=== PATIENT | male | born 1950 | race Caucasian/White ===

== ENCOUNTER 2017-12-15 18:06 | Inpatient (IN) ==
[2017-12-15] MEDS ORDERED: NITROGLYCERIN 2% OINT 1 INCH/GM PACK TOP STA (18:28)
[2017-12-15] MEDS ORDERED: ONDANSETRON 4 MG/2 ML VIAL IV STA (18:28)
[2017-12-15] MEDS ORDERED: ASPIRIN 325 MG TABLET PO STA (18:28)
[2017-12-15 18:49] LABS: Basophils % 0.3 % (0.0-0.8); Eosinophils # 0.1 10*3/uL (0.0-0.87); Hematocrit 23.8 VOL% (42.0-52.0); Hemoglobin 8.6 GM/DL (14.0-18.0); Immature Granulocytes % 1.7 %; Immature Granulocytes Absolute 0.11 #; Lymphocytes % 15.4 % (21.2-54.2); Mean Corpuscular HGB Conc 36.1 GM/DL (32-36); Mean Corpuscular Hemoglobin 38 PG (27-34); Mean Corpuscular Volume 103.9 FL (87-102); Monocytes # 0.6 10*3/uL (0.11-0.8); Monocytes % 8.8 % (1.7-12.7); NRBC # 0.02 10*3/uL; Neutrophils # 4.7 10*3/uL (1.4-7.4); Neutrophils % 71.8 % (38.7-73.9); Platelet Count 163 T/CUMM (130-400); Red Blood Count 2.29 MC/CUMM (3.8-5.5); Red Cell Distribution Width 14.7 % (9.3-17.3); White Blood Count 6.5 T/CUMM (4-12)
[2017-12-15 19:07] LABS: PT Patient Result 10.1 SECS
[2017-12-15 19:33] LABS: Albumin 2.9 G/DL (3.4-5.0); Bilirubin,Total 0.4 MG/DL (0.2-1.0); Calcium 7.7 MG/DL (8.5-10.1); Osmolality,Calculated 297.7 MOS/KG (273-304); Potassium 3.6 MMOL/L (3.5-5.1); Total Protein 6.7 G/DL (6.4-8.3)
[2017-12-15] MEDS ORDERED: MAGNESIUM SULF RIDER 2 GM in PREMIX 1 EACH IV STA (19:47)
[2017-12-15] MEDS ORDERED: ONDANSETRON 4 MG/2 ML VIAL IV PRN (22:55)
[2017-12-15] MEDS ORDERED: SEVELAMER CARBONATE 800 MG TABLET PO SCH (22:55)
[2017-12-15] MEDS ORDERED: GLUCAGON 1 MG VIAL IM PRN (22:55)
[2017-12-15] MEDS ORDERED: ACETAMINOPHEN 325 MG TABLET PO PRN (22:55)
[2017-12-15] MEDS ORDERED: DEXTROSE 50% 25 GM/50 ML VIAL IV PRN (22:55)
[2017-12-15] MEDS: MELATONIN 3 MG TABLET PO SCH (23:17)
[2017-12-15] MEDS: METOPROLOL TARTRATE 25 MG TABLET PO SCH (23:17)
[2017-12-15] MEDS: ATORVASTATIN 40 MG TABLET PO SCH (23:18)
[2017-12-15] MEDS: ERGOCALCIFEROL 50,000 UNIT CAPSULE PO SCH (23:18)
[2017-12-15] MEDS: GABAPENTIN 300 MG CAPSULE PO SCH (23:18)
[2017-12-15] MEDS: SODIUM CHLORIDE 0.9% 1,000 ML IV SCH (23:19)
[2017-12-15] MEDS: INSULIN LISPRO 100 UNIT/ML SUBCUT SCH (23:29)
[2017-12-16] MEDS: INSULIN LISPRO 100 UNIT/ML SUBCUT SCH ×3 (05:33→18:33)
[2017-12-16 05:56] LABS: Calcium 7.8 MG/DL (8.5-10.1); Osmolality,Calculated 300.4 MOS/KG (273-304); Potassium 3.6 MMOL/L (3.5-5.1)
[2017-12-16 06:06] LABS: Risk Ratio 6.52; Thyroid Stimulating Hormone 2.61 uIU/ml (0.358-3.74)
[2017-12-16 06:41] LABS: Basophils % 0.3 % (0.0-0.8); Eosinophils # 0.2 10*3/uL (0.0-0.87); Eosinophils % 2.4 % (0.00-10.9); Hemoglobin 7.1 GM/DL (14.0-18.0); Immature Granulocytes % 2.4 %; Immature Granulocytes Absolute 0.15 #; Lymphocytes # 1.1 10*3/uL (1.4-4.0); Lymphocytes % 17.2 % (21.2-54.2); Mean Corpuscular HGB Conc 33.8 GM/DL (32-36); Mean Corpuscular Hemoglobin 35 PG (27-34); Mean Corpuscular Volume 102.9 FL (87-102); Mean Platelet Volume 10.6 FL (9.6-12.0); Monocytes # 0.7 10*3/uL (0.11-0.8); Monocytes % 10.6 % (1.7-12.7); Neutrophils # 4.2 10*3/uL (1.4-7.4); Neutrophils % 67.1 % (38.7-73.9); Platelet Count 158 T/CUMM (130-400); Red Blood Count 2.04 MC/CUMM (3.8-5.5); Red Cell Distribution Width 14.9 % (9.3-17.3); White Blood Count 6.2 T/CUMM (4-12)
[2017-12-16] MEDS: ENOXAPARIN 30 MG/0.3 ML SYRINGE SUBCUT SCH (09:05)
[2017-12-16] MEDS: PANTOPRAZOLE 40 MG TABLET PO SCH (09:06)
[2017-12-16] MEDS: CITALOPRAM 40 MG TABLET PO SCH (09:06)
[2017-12-16] MEDS: glipiZIDE 10 MG TABLET PO SCH ×2 (09:06→13:51)
[2017-12-16] MEDS: MULTIVITAMIN (BEROCCA) TABLET PO SCH (09:07)
[2017-12-16] MEDS: METOPROLOL TARTRATE 25 MG TABLET PO SCH ×2 (09:07→21:26)
[2017-12-16] MEDS: DOCUSATE SODIUM 100 MG CAPSULE PO PRN (09:07)
[2017-12-16] MEDS: ALLOPURINOL 100 MG TABLET PO SCH (09:07)
[2017-12-16] MEDS: SEVELAMER CARBONATE 800 MG TABLET PO SCH ×3 (11:25→18:31)
[2017-12-16] MEDS ORDERED: SODIUM CHLORIDE 0.9% 1,000 ML IV PRN ×2 (11:47→11:57)
[2017-12-16] MEDS ORDERED: DEXTROSE 5% NACL 0.45% 1,000 ML IV SCH (12:30)
[2017-12-16] MEDS: SODIUM CHLORIDE 0.9% 1,000 ML IV SCH (12:32)
[2017-12-16 13:44] LABS: % Iron Saturation 31.5 % (18-50)
[2017-12-16] MEDS ORDERED: NITROGLYCERIN SL 0.4 MG TABLET SL ONE (15:22)
[2017-12-16] MEDS ORDERED: NITROGLYCERIN SL 0.4 MG TABLET SL PRN (15:29)
[2017-12-16] MEDS: GABAPENTIN 300 MG CAPSULE PO SCH (18:31)
[2017-12-16] MEDS: ATORVASTATIN 40 MG TABLET PO SCH (18:31)
[2017-12-16] MEDS ORDERED: MAGNESIUM SULF RIDER 2 GM in PREMIX 1 EACH IV PRN (18:51)
[2017-12-16] MEDS ORDERED: POTASSIUM CHLORIDE RIDER 10 MEQ in PREMIX 1 EACH IV PRN (18:51)
[2017-12-16] MEDS: MELATONIN 3 MG TABLET PO SCH (21:26)
[2017-12-16 22:40] LABS: Hemoglobin 8.6 GM/DL (14.0-18.0)
[2017-12-17] MEDS: INSULIN LISPRO 100 UNIT/ML SUBCUT SCH ×2 (01:07→06:26)
[2017-12-17] MEDS ORDERED: DIAZEPAM 5 MG TABLET PO ONE (06:30)
[2017-12-17] MEDS ORDERED: diphenhydrAMINE CAP 25 MG CAPSULE PO ONE (06:30)
[2017-12-17] MEDS ORDERED: ASPIRIN 325 MG TABLET PO ONE (06:30)
[2017-12-17 06:58] LABS: Basophils % 0.3 % (0.0-0.8); Eosinophils # 0.1 10*3/uL (0.0-0.87); Eosinophils % 1.9 % (0.00-10.9); Hemoglobin 8.3 GM/DL (14.0-18.0); Immature Granulocytes % 1.7 %; Lymphocytes # 0.9 10*3/uL (1.4-4.0); Lymphocytes % 14.5 % (21.2-54.2); Mean Corpuscular HGB Conc 33.2 GM/DL (32-36); Mean Corpuscular Hemoglobin 32 PG (27-34); Mean Corpuscular Volume 97.7 FL (87-102); Mean Platelet Volume 10.1 FL (9.6-12.0); Monocytes # 0.5 10*3/uL (0.11-0.8); Monocytes % 9.2 % (1.7-12.7); Neutrophils # 4.3 10*3/uL (1.4-7.4); Neutrophils % 72.4 % (38.7-73.9); Platelet Count 119 T/CUMM (130-400); Red Blood Count 2.56 MC/CUMM (3.8-5.5); Red Cell Distribution Width 17.3 % (9.3-17.3); White Blood Count 5.9 T/CUMM (4-12)
[2017-12-17 07:31] LABS: Calcium 8.1 MG/DL (8.5-10.1); Osmolality,Calculated 300.3 MOS/KG (273-304)
[2017-12-17] MEDS: SEVELAMER CARBONATE 800 MG TABLET PO SCH ×3 (09:09→16:01)
[2017-12-17] MEDS ORDERED: NITROGLYCERIN DRIP 50 MG/250 ML BOTTLE IV ONE (09:49)
[2017-12-17] MEDS ORDERED: fentaNYL 100 MCG/2 ML VIAL ONE (09:49)
[2017-12-17] MEDS ORDERED: MIDAZOLAM 2 MG/2 ML VIAL ONE (09:49)
[2017-12-17] MEDS ORDERED: VERAPAMIL 5 MG/2 ML VIAL ONE (09:50)
[2017-12-17] MEDS ORDERED: ENOXAPARIN 60 MG/0.6 ML SYRINGE ONE (10:36)
[2017-12-17] MEDS ORDERED: DEXTROSE 50% 25 GM/50 ML VIAL IV PRN (10:54)
[2017-12-17] MEDS ORDERED: GLUCAGON 1 MG VIAL IM PRN (10:54)
[2017-12-17] MEDS: PANTOPRAZOLE 40 MG TABLET PO SCH (10:54)
[2017-12-17] MEDS: CITALOPRAM 40 MG TABLET PO SCH (10:54)
[2017-12-17] MEDS: ALLOPURINOL 100 MG TABLET PO SCH (10:54)
[2017-12-17] MEDS: METOPROLOL TARTRATE 25 MG TABLET PO SCH ×2 (10:54→20:38)
[2017-12-17] MEDS: ENOXAPARIN 30 MG/0.3 ML SYRINGE SUBCUT SCH (10:54)
[2017-12-17] MEDS: MULTIVITAMIN (BEROCCA) TABLET PO SCH (10:54)
[2017-12-17] MEDS: INSULIN REGULAR 100 UNIT/ML SUBCUT SCH ×3 (11:08→19:38)
[2017-12-17] MEDS: MELATONIN 3 MG TABLET PO SCH (20:38)
[2017-12-17] MEDS: GABAPENTIN 300 MG CAPSULE PO SCH (20:38)
[2017-12-17] MEDS ORDERED: ATORVASTATIN 40 MG TABLET PO SCH (21:00)
[2017-12-18 07:57] LABS: Basophils % 0.3 % (0.0-0.8); Eosinophils # 0.1 10*3/uL (0.0-0.87); Eosinophils % 1.7 % (0.00-10.9); Hematocrit 25.7 VOL% (42.0-52.0); Hemoglobin 8.5 GM/DL (14.0-18.0); Immature Granulocytes % 1.8 %; Immature Granulocytes Absolute 0.12 #; Lymphocytes # 0.9 10*3/uL (1.4-4.0); Lymphocytes % 13.5 % (21.2-54.2); Mean Corpuscular HGB Conc 33.1 GM/DL (32-36); Mean Corpuscular Hemoglobin 33 PG (27-34); Mean Corpuscular Volume 98.8 FL (87-102); Mean Platelet Volume 9.9 FL (9.6-12.0); Monocytes # 0.6 10*3/uL (0.11-0.8); Monocytes % 9.7 % (1.7-12.7); Neutrophils # 4.8 10*3/uL (1.4-7.4); Platelet Count 128 T/CUMM (130-400); White Blood Count 6.6 T/CUMM (4-12)
[2017-12-18] MEDS: CITALOPRAM 40 MG TABLET PO SCH (08:10)
[2017-12-18] MEDS: DOCUSATE SODIUM 100 MG CAPSULE PO PRN (08:10)
[2017-12-18] MEDS: SEVELAMER CARBONATE 800 MG TABLET PO SCH ×3 (08:10→18:09)
[2017-12-18] MEDS: ASPIRIN EC 81 MG TABLET PO SCH (08:11)
[2017-12-18] MEDS: PANTOPRAZOLE 40 MG TABLET PO SCH (08:11)
[2017-12-18] MEDS: METOPROLOL TARTRATE 25 MG TABLET PO SCH ×2 (08:11→21:21)
[2017-12-18] MEDS: INSULIN REGULAR 100 UNIT/ML SUBCUT SCH ×4 (08:11→21:03)
[2017-12-18] MEDS: ALLOPURINOL 100 MG TABLET PO SCH (08:11)
[2017-12-18] MEDS: MULTIVITAMIN (BEROCCA) TABLET PO SCH (08:12)
[2017-12-18] MEDS: ENOXAPARIN 30 MG/0.3 ML SYRINGE SUBCUT SCH (08:12)
[2017-12-18 08:27] LABS: Calcium 8.6 MG/DL (8.5-10.1); Osmolality,Calculated 301.4 MOS/KG (273-304); Potassium 4.4 MMOL/L (3.5-5.1)
[2017-12-18] MEDS: MELATONIN 3 MG TABLET PO SCH (21:21)
[2017-12-18] MEDS: GABAPENTIN 300 MG CAPSULE PO SCH (21:21)
[2017-12-19] MEDS: INSULIN REGULAR 100 UNIT/ML SUBCUT SCH ×4 (08:35→21:01)
[2017-12-19] MEDS: EZETIMIBE 10 MG TABLET PO SCH (08:38)
[2017-12-19] MEDS: METOPROLOL TARTRATE 25 MG TABLET PO SCH ×2 (08:38→20:59)
[2017-12-19] MEDS: FENOFIBRATE 160 MG TABLET PO SCH (08:38)
[2017-12-19] MEDS: MULTIVITAMIN (BEROCCA) TABLET PO SCH (08:38)
[2017-12-19] MEDS: SEVELAMER CARBONATE 800 MG TABLET PO SCH ×3 (08:39→17:35)
[2017-12-19] MEDS: ASPIRIN EC 81 MG TABLET PO SCH (08:39)
[2017-12-19] MEDS: CITALOPRAM 40 MG TABLET PO SCH (08:39)
[2017-12-19] MEDS: PANTOPRAZOLE 40 MG TABLET PO SCH (08:39)
[2017-12-19] MEDS: ENOXAPARIN 30 MG/0.3 ML SYRINGE SUBCUT SCH (08:39)
[2017-12-19] MEDS: ALLOPURINOL 100 MG TABLET PO SCH (08:39)
[2017-12-19] MEDS: ROSUVASTATIN 20 MG TABLET PO SCH (09:50)
[2017-12-19 10:50] LABS: Basophils % 0.3 % (0.0-0.8); Eosinophils # 0.1 10*3/uL (0.0-0.87); Eosinophils % 2.1 % (0.00-10.9); Hematocrit 26.1 VOL% (42.0-52.0); Hemoglobin 8.5 GM/DL (14.0-18.0); Immature Granulocytes % 1.7 %; Immature Granulocytes Absolute 0.11 #; Lymphocytes # 0.7 10*3/uL (1.4-4.0); Lymphocytes % 11.6 % (21.2-54.2); Mean Corpuscular HGB Conc 32.6 GM/DL (32-36); Mean Corpuscular Hemoglobin 33 PG (27-34); Mean Platelet Volume 10.5 FL (9.6-12.0); Monocytes # 0.5 10*3/uL (0.11-0.8); Monocytes % 7.9 % (1.7-12.7); Neutrophils # 4.8 10*3/uL (1.4-7.4); Neutrophils % 76.4 % (38.7-73.9); Platelet Count 135 T/CUMM (130-400); Red Blood Count 2.61 MC/CUMM (3.8-5.5); Red Cell Distribution Width 16.6 % (9.3-17.3); White Blood Count 6.3 T/CUMM (4-12)
[2017-12-19 11:19] LABS: Calcium 8.8 MG/DL (8.5-10.1); Osmolality,Calculated 299.4 MOS/KG (273-304); Potassium 4.4 MMOL/L (3.5-5.1)
[2017-12-19] MEDS ORDERED: MAGNESIUM SULF RIDER 2 GM in PREMIX 1 EACH IV ONE (12:08)
[2017-12-19] MEDS: GABAPENTIN 300 MG CAPSULE PO SCH (20:59)
[2017-12-19] MEDS: MELATONIN 3 MG TABLET PO SCH (20:59)
[2017-12-20 05:17] LABS: Basophils % 0.3 % (0.0-0.8); Eosinophils # 0.2 10*3/uL (0.0-0.87); Eosinophils % 2.5 % (0.00-10.9); Hemoglobin 7.9 GM/DL (14.0-18.0); Immature Granulocytes % 1.6 %; Lymphocytes # 0.8 10*3/uL (1.4-4.0); Lymphocytes % 13.1 % (21.2-54.2); Mean Corpuscular HGB Conc 32.9 GM/DL (32-36); Mean Corpuscular Hemoglobin 33 PG (27-34); Mean Corpuscular Volume 99.6 FL (87-102); Mean Platelet Volume 10.2 FL (9.6-12.0); Monocytes # 0.7 10*3/uL (0.11-0.8); Monocytes % 10.4 % (1.7-12.7); Neutrophils # 4.6 10*3/uL (1.4-7.4); Neutrophils % 72.1 % (38.7-73.9); Platelet Count 134 T/CUMM (130-400); Red Blood Count 2.41 MC/CUMM (3.8-5.5); White Blood Count 6.4 T/CUMM (4-12)
[2017-12-20 05:47] LABS: Calcium 8.7 MG/DL (8.5-10.1); Osmolality,Calculated 297.4 MOS/KG (273-304); Potassium 4.5 MMOL/L (3.5-5.1)
[2017-12-20 06:38] LABS: Hepatitis A Ab IgM Quant 0.25 Index; Hepatitis A Ab IgM Result Negative (Negative); Hepatitis B Core IgM Quant < 0.05 Index; Hepatitis B Core IgM Result Negative (Negative); Hepatitis B Surface Ag Quant 0.24 Index; Hepatitis B Surface Ag Result Negative (Negative); Hepatitis C Virus Ab Quant 0.02 Index; Hepatitis C Virus Ab Result Negative (Negative)
[2017-12-20] MEDS: MULTIVITAMIN (BEROCCA) TABLET PO SCH (08:14)
[2017-12-20] MEDS: glipiZIDE 10 MG TABLET PO SCH ×3 (08:15→17:01)
[2017-12-20] MEDS: ROSUVASTATIN 20 MG TABLET PO SCH (08:15)
[2017-12-20] MEDS: FENOFIBRATE 160 MG TABLET PO SCH (08:15)
[2017-12-20] MEDS: PANTOPRAZOLE 40 MG TABLET PO SCH (08:15)
[2017-12-20] MEDS: CITALOPRAM 40 MG TABLET PO SCH (08:15)
[2017-12-20] MEDS: CLORAZEPATE 3.75 MG TABLET PO PRN ×3 (08:15→21:47)
[2017-12-20] MEDS: EZETIMIBE 10 MG TABLET PO SCH (08:15)
[2017-12-20] MEDS: SEVELAMER CARBONATE 800 MG TABLET PO SCH ×3 (08:15→17:01)
[2017-12-20] MEDS: METOPROLOL TARTRATE 25 MG TABLET PO SCH ×2 (08:15→21:48)
[2017-12-20] MEDS: ASPIRIN EC 81 MG TABLET PO SCH (08:15)
[2017-12-20] MEDS: ALLOPURINOL 100 MG TABLET PO SCH (08:15)
[2017-12-20] MEDS: INSULIN REGULAR 100 UNIT/ML SUBCUT SCH ×4 (08:21→21:48)
[2017-12-20] MEDS: MELATONIN 3 MG TABLET PO SCH (21:47)
[2017-12-20] MEDS: GABAPENTIN 300 MG CAPSULE PO SCH (21:48)
[2017-12-21] MEDS: DOCUSATE SODIUM 100 MG CAPSULE PO PRN (03:45)
[2017-12-21] MEDS: CLORAZEPATE 3.75 MG TABLET PO PRN ×4 (03:45→21:35)
[2017-12-21] MEDS: INSULIN REGULAR 100 UNIT/ML SUBCUT SCH ×4 (09:26→23:27)
[2017-12-21] MEDS: glipiZIDE 10 MG TABLET PO SCH ×3 (09:27→16:55)
[2017-12-21] MEDS: SEVELAMER CARBONATE 800 MG TABLET PO SCH ×3 (09:27→16:55)
[2017-12-21] MEDS: METOPROLOL TARTRATE 25 MG TABLET PO SCH ×2 (09:28→21:35)
[2017-12-21] MEDS: ALLOPURINOL 100 MG TABLET PO SCH (09:28)
[2017-12-21] MEDS: ASPIRIN EC 81 MG TABLET PO SCH (09:28)
[2017-12-21] MEDS: MULTIVITAMIN (BEROCCA) TABLET PO SCH (09:28)
[2017-12-21] MEDS: EZETIMIBE 10 MG TABLET PO SCH (09:28)
[2017-12-21] MEDS: FENOFIBRATE 160 MG TABLET PO SCH (09:28)
[2017-12-21] MEDS: PANTOPRAZOLE 40 MG TABLET PO SCH (09:28)
[2017-12-21] MEDS: CITALOPRAM 40 MG TABLET PO SCH (09:28)
[2017-12-21] MEDS: ROSUVASTATIN 20 MG TABLET PO SCH (09:28)
[2017-12-21] MEDS ORDERED: SODIUM CHLORIDE 0.9% 1,000 ML IV PRN (13:48)
[2017-12-21] MEDS: GABAPENTIN 300 MG CAPSULE PO SCH (21:35)
[2017-12-21] MEDS: MELATONIN 3 MG TABLET PO SCH (21:35)
[2017-12-21] MEDS: SODIUM CHLORIDE 0.9% 1,000 ML IV SCH (23:26)
[2017-12-21] MEDS: CHLORHEXIDINE 0.12% ORAL RINSE 60 ML BOTTLE SWISH/SPIT SCH (23:27)
[2017-12-22 05:48] LABS: Basophils % 0.3 % (0.0-0.8); Eosinophils # 0.2 10*3/uL (0.0-0.87); Eosinophils % 2.6 % (0.00-10.9); Hematocrit 23.3 VOL% (42.0-52.0); Hemoglobin 7.9 GM/DL (14.0-18.0); Immature Granulocytes % 2.7 %; Immature Granulocytes Absolute 0.16 #; Lymphocytes # 1.1 10*3/uL (1.4-4.0); Lymphocytes % 18.1 % (21.2-54.2); Mean Corpuscular HGB Conc 33.9 GM/DL (32-36); Mean Corpuscular Hemoglobin 33 PG (27-34); Mean Corpuscular Volume 96.3 FL (87-102); Mean Platelet Volume 10.2 FL (9.6-12.0); Monocytes # 0.7 10*3/uL (0.11-0.8); Monocytes % 11.9 % (1.7-12.7); Neutrophils # 3.8 10*3/uL (1.4-7.4); Neutrophils % 64.4 % (38.7-73.9); Platelet Count 141 T/CUMM (130-400); Red Blood Count 2.42 MC/CUMM (3.8-5.5); Red Cell Distribution Width 15.9 % (9.3-17.3); White Blood Count 5.9 T/CUMM (4-12)
[2017-12-22 06:10] LABS: Alanine Aminotransferase 24 U/L (16-61); Albumin 2.5 G/DL (3.4-5.0); Alkaline Phosphatase 83 U/L (45-117); Aspartate Amino Transferase 14 U/L (0-37); Bilirubin,Total < 0.39 MG/DL (0.2-1.0); Blood Urea Nitrogen 61 MG/DL (7-18); Calcium 8.7 MG/DL (8.5-10.1); Glucose 159 MG/DL (74-106); Osmolality,Calculated 298.4 MOS/KG (273-304); Potassium 4.1 MMOL/L (3.5-5.1); Sodium 140 MMOL/L (136-145); Total Protein 5.9 G/DL (6.4-8.3)
[2017-12-22] MEDS: INSULIN REGULAR 100 UNIT/ML SUBCUT SCH ×4 (08:33→20:30)
[2017-12-22] MEDS: glipiZIDE 10 MG TABLET PO SCH ×3 (08:49→18:10)
[2017-12-22] MEDS: SEVELAMER CARBONATE 800 MG TABLET PO SCH ×3 (08:49→18:10)
[2017-12-22] MEDS: ROSUVASTATIN 20 MG TABLET PO SCH (10:12)
[2017-12-22] MEDS: MULTIVITAMIN (BEROCCA) TABLET PO SCH (10:12)
[2017-12-22] MEDS: METOPROLOL TARTRATE 25 MG TABLET PO SCH ×2 (10:13→20:29)
[2017-12-22] MEDS: CITALOPRAM 40 MG TABLET PO SCH (10:13)
[2017-12-22] MEDS: ALLOPURINOL 100 MG TABLET PO SCH (10:13)
[2017-12-22] MEDS: FENOFIBRATE 160 MG TABLET PO SCH (10:13)
[2017-12-22] MEDS: ASPIRIN EC 81 MG TABLET PO SCH (10:13)
[2017-12-22] MEDS: ERGOCALCIFEROL 50,000 UNIT CAPSULE PO SCH (10:13)
[2017-12-22] MEDS: EZETIMIBE 10 MG TABLET PO SCH (10:13)
[2017-12-22] MEDS: PANTOPRAZOLE 40 MG TABLET PO SCH (10:13)
[2017-12-22] MEDS: CHLORHEXIDINE 0.12% ORAL RINSE 60 ML BOTTLE SWISH/SPIT SCH ×2 (10:14→20:33)
[2017-12-22] MEDS: CHLORHEXIDINE 4% SOLN 118 ML BOTTLE TOP SCH ×2 (15:00→21:00)
[2017-12-22] MEDS ORDERED: DIAZEPAM 5 MG TABLET PO ONE (15:29)
[2017-12-22] MEDS: CLORAZEPATE 3.75 MG TABLET PO PRN (18:14)
[2017-12-22] MEDS: MELATONIN 3 MG TABLET PO SCH (20:29)
[2017-12-22] MEDS: GABAPENTIN 300 MG CAPSULE PO SCH (20:30)
[2017-12-22 20:45] LABS: Hematocrit 29.4 VOL% (42.0-52.0); Hemoglobin 10.1 GM/DL (14.0-18.0)
[2017-12-23] MEDS ORDERED: PAPAVERINE 60 MG/2 ML VIAL ONE (05:24)
[2017-12-23] MEDS ORDERED: TISSUE ADHESIVE 1 EACH APPLICATOR TOP ONE (05:24)
[2017-12-23] MEDS ORDERED: VANCOMYCIN 1,000 MG VIAL ONE (05:24)
[2017-12-23 05:51] LABS: Basophils % 0.6 % (0.0-0.8); Eosinophils # 0.1 10*3/uL (0.0-0.87); Eosinophils % 2.1 % (0.00-10.9); Hematocrit 29.1 VOL% (42.0-52.0); Hemoglobin 9.8 GM/DL (14.0-18.0); Immature Granulocytes % 2.2 %; Immature Granulocytes Absolute 0.14 #; Lymphocytes # 1.1 10*3/uL (1.4-4.0); Lymphocytes % 17.8 % (21.2-54.2); Mean Corpuscular HGB Conc 33.7 GM/DL (32-36); Mean Corpuscular Hemoglobin 32 PG (27-34); Mean Corpuscular Volume 95.7 FL (87-102); Mean Platelet Volume 9.9 FL (9.6-12.0); Monocytes # 0.6 10*3/uL (0.11-0.8); Monocytes % 9.1 % (1.7-12.7); Neutrophils # 4.2 10*3/uL (1.4-7.4); Neutrophils % 68.2 % (38.7-73.9); Platelet Count 129 T/CUMM (130-400); Red Blood Count 3.04 MC/CUMM (3.8-5.5); Red Cell Distribution Width 16.1 % (9.3-17.3); White Blood Count 6.2 T/CUMM (4-12)
[2017-12-23] MEDS ORDERED: DEXMEDETOMIDINE 200 MCG/2 ML VIAL IV ONE (05:55)
[2017-12-23] MEDS ORDERED: DIAZEPAM 5 MG TABLET PO ONE (06:00)
[2017-12-23] MEDS ORDERED: CEFUROXIME INJ 1,500 MG in SYRINGE 1 EACH IV ONE (06:00)
[2017-12-23 06:19] LABS: Albumin 2.6 G/DL (3.4-5.0); Bilirubin,Total 0.4 MG/DL (0.2-1.0); Calcium 8.4 MG/DL (8.5-10.1); Osmolality,Calculated 297.4 MOS/KG (273-304); Potassium 4.3 MMOL/L (3.5-5.1); Total Protein 6.2 G/DL (6.4-8.3)
[2017-12-23 07:59] LABS: ABG Base Excess -0.8 MMOL/L (-2.5-2.5); ABG HCO3 23.8 MMOL/L (20-26); ABG Oxygen Saturation 98.7 % (95-100); ABG PCO2 38.8 MM HG (35-48); ABG PH 7.397 (7.35-7.45); ABG TCO2 21.9 MMOL/L (23-27); Glucose Heart Surgery 122 MG/DL (74-106); Hemoglobin Heart Surgery 9.4 G/DL (14.0-18.0); Ionized Calcium Arterial 1.15 MMOL/L (1.21-1.46); PCO2 Patient Temp Arterial 38.8 MMHG; PH Patient Temp Arterial 7.397; Patient Temperature 37 CELCIUS; Potassium Heart/CVR 4.4 MMOL/L (3.5-5.1); Sodium Heart/CVR 140 MMOL/L (135-145)
[2017-12-23 09:00] LABS: Apearance,Urine CLEAR (Clear); Bacteria,Urine Occasional /HPF (Few); Bilirubin,Urine Negative (Negative); Blood, Urine Negative (Negative); Glucose,Urine (UA) Negative (Negative); Ketones,Urine Negative (Negative); Nitrite,Urine Negative (Negative); Protein,Urine 100 MG/DL; RBC,Urine 4 /HPF (0-4); Squamous Epithelial Cell,Urine Occasional /HPF (0-10); Urine Color Yellow (Yellow); Urine Specific Gravity 1.013 (1.001-1.035); Urine Urobilinogen < 2.0 EU/DL (0.2-1.0); WBC,Urine 1 /HPF (0-6)
[2017-12-23] MEDS ORDERED: CALCIUM CHLORIDE 1,000 MG/10 ML VIAL IV ONE ×2 (09:22→12:42)
[2017-12-23] MEDS ORDERED: HEPARIN/NACL 0.9% 2 UNITS/ML 500 ML IV ONE (09:22)
[2017-12-23] MEDS ORDERED: ETOMIDATE 40 MG/20 ML VIAL IV ONE (09:23)
[2017-12-23] MEDS ORDERED: PHENYLEPHRINE 10 MG/1 ML VIAL IV ONE (09:23)
[2017-12-23] MEDS ORDERED: VECURONIUM 10 MG VIAL IV ONE (09:23)
[2017-12-23] MEDS ORDERED: SUFentanil 250 MCG/5 ML AMP ONE ×2 (09:23→09:26)
[2017-12-23] MEDS ORDERED: MIDAZOLAM 10 MG/2 ML VIAL ONE (09:23)
[2017-12-23] MEDS ORDERED: LACTATED RINGERS 1,000 ML IV ONE (09:24)
[2017-12-23] MEDS ORDERED: SODIUM CHLORIDE 0.9% 500 ML IV ONE (09:24)
[2017-12-23] MEDS ORDERED: SODIUM CHLORIDE 0.9% 200 ML IV ONE (09:24)
[2017-12-23] MEDS ORDERED: SODIUM CHLORIDE 0.9% 1,000 ML IV ONE (09:24)
[2017-12-23] MEDS ORDERED: NITROGLYCERIN DRIP 50 MG/250 ML BOTTLE IV ONE (09:24)
[2017-12-23 09:34] LABS: Hematocrit Heart Surgery 21.5 PERCENT (42-52); Hemoglobin Heart Surgery 6.9 G/DL (14.0-18.0); PCO2 Patient Temp Venous 39.9 MM HG; PH Patient Temp Venous 7.385; PO2 Patient Temp Venous 33.8 MM HG; Potassium Heart/CVR 5.5 MMOL/L (3.5-5.1); VBG Base Excess -0.8 MEQ/L (0-4); VBG HCO3 23.4 MEQ/L (24-28); VBG Oxygen Saturation 69.2 %; VBG PCO2 43.9 MMHG (41-51); VBG PH 7.357; VBG PO2 38.8 MMHG (17-40)
[2017-12-23 10:06] LABS: Hematocrit Heart Surgery 22.9 PERCENT (42-52); Hemoglobin Heart Surgery 7.3 G/DL (14.0-18.0); PCO2 Patient Temp Venous 36.2 MM HG; PH Patient Temp Venous 7.359; PO2 Patient Temp Venous 37.1 MM HG; Potassium Heart/CVR 5.4 MMOL/L (3.5-5.1); VBG Base Excess -4.4 MEQ/L (0-4); VBG HCO3 20.5 MEQ/L (24-28); VBG Oxygen Saturation 76.7 %; VBG PCO2 41.9 MMHG (41-51); VBG PH 7.317; VBG PO2 45.6 MMHG (17-40)
[2017-12-23 10:38] LABS: Hemoglobin Heart Surgery 7.8 G/DL (14.0-18.0); PCO2 Patient Temp Venous 36.4 MM HG; PH Patient Temp Venous 7.34; VBG Base Excess -6.1 MEQ/L (0-4); VBG HCO3 19.6 MEQ/L (24-28); VBG Oxygen Saturation 72.1 %; VBG PCO2 39.7 MMHG (41-51); VBG PH 7.312
[2017-12-23 10:39] LABS: Potassium Heart/CVR 6.2 MMOL/L (3.5-5.1)
[2017-12-23] MEDS ORDERED: ALBUMIN 5% 12.5 GM/250 ML VIAL IV ONE (10:39)
[2017-12-23] MEDS ORDERED: POTASSIUM CHLORIDE RIDER 100 ML IV ONE (10:39)
[2017-12-23] MEDS ORDERED: THROMBIN TOPICAL (RECOMBINANT) 5,000 UNIT VIAL TOP ONE (10:45)
[2017-12-23] MEDS ORDERED: diphenhydrAMINE 50 MG/1 ML VIAL ONE (10:53)
[2017-12-23] MEDS ORDERED: FAMOTIDINE 20 MG/2 ML VIAL IV ONE (10:54)
[2017-12-23] MEDS: SODIUM CHLORIDE 0.9% 1,000 ML IV SCH (11:00)
[2017-12-23] MEDS: INSULIN REGULAR 100 UNIT/ML SUBCUT SCH ×2 (11:01→16:36)
[2017-12-23] MEDS: glipiZIDE 10 MG TABLET PO SCH ×2 (11:01→16:36)
[2017-12-23] MEDS: ASPIRIN EC 81 MG TABLET PO SCH (11:01)
[2017-12-23] MEDS: SEVELAMER CARBONATE 800 MG TABLET PO SCH ×2 (11:01→16:36)
[2017-12-23] MEDS: ROSUVASTATIN 20 MG TABLET PO SCH (11:02)
[2017-12-23] MEDS: CITALOPRAM 40 MG TABLET PO SCH (11:02)
[2017-12-23] MEDS: CHLORHEXIDINE 4% SOLN 118 ML BOTTLE TOP SCH (11:02)
[2017-12-23] MEDS: CHLORHEXIDINE 0.12% ORAL RINSE 60 ML BOTTLE SWISH/SPIT SCH ×2 (11:02→22:45)
[2017-12-23] MEDS: MULTIVITAMIN (BEROCCA) TABLET PO SCH (11:02)
[2017-12-23] MEDS: METOPROLOL TARTRATE 25 MG TABLET PO SCH (11:02)
[2017-12-23] MEDS: FENOFIBRATE 160 MG TABLET PO SCH (11:03)
[2017-12-23] MEDS: EZETIMIBE 10 MG TABLET PO SCH (11:03)
[2017-12-23] MEDS: PANTOPRAZOLE 40 MG TABLET PO SCH (11:03)
[2017-12-23] MEDS: ALLOPURINOL 100 MG TABLET PO SCH (11:03)
[2017-12-23 11:05] LABS: ABG Base Excess -7.9 MMOL/L (-2.5-2.5); ABG Oxygen Saturation 99.9 % (95-100); ABG PCO2 37.1 MM HG (35-48); ABG PH 7.293 (7.35-7.45); ABG TCO2 17.1 MMOL/L (23-27); Glucose Heart Surgery 193 MG/DL (74-106); Hematocrit Heart Surgery 23.4 PERCENT (42-52); Hemoglobin Heart Surgery 7.5 G/DL (14.0-18.0); Ionized Calcium Arterial 1.11 MMOL/L (1.21-1.46); PCO2 Patient Temp Arterial 37.1 MMHG; PH Patient Temp Arterial 7.293; Patient Temperature 37 CELCIUS; Potassium Heart/CVR 5.7 MMOL/L (3.5-5.1); Sodium Heart/CVR 136 MMOL/L (135-145)
[2017-12-23] MEDS ORDERED: DEXTROSE 5% KCL 20 MEQ 20 MEQ/1,000 ML BAG IV ONE (11:08)
[2017-12-23] MEDS ORDERED: FUROSEMIDE 20 MG/2 ML VIAL ONE (11:09)
[2017-12-23] MEDS ORDERED: MAGNESIUM SULFATE 10 GM/20 ML VIAL IV ONE (11:09)
[2017-12-23] MEDS ORDERED: SODIUM BICARBONATE 50 MEQ/50 ML SYRINGE IV ONE (11:09)
[2017-12-23] MEDS ORDERED: MANNITOL 12.5 GM/50 ML VIAL IV ONE (11:09)
[2017-12-23] MEDS ORDERED: methylPREDNISolone SOD SUC 1,000 MG/8 ML VIAL ONE (11:09)
[2017-12-23] MEDS ORDERED: ALBUMIN 25% 25 GM/100 ML VIAL IV ONE (11:09)
[2017-12-23] MEDS ORDERED: PROTAMINE SULFATE 250 MG/25 ML VIAL IV ONE (11:09)
[2017-12-23] MEDS ORDERED: HEPARIN 10,000 UNIT/10 ML VIAL ONE (11:09)
[2017-12-23] MEDS ORDERED: PHENYLEPHRINE 1 MG/10 ML SYRINGE IV ONE (11:10)
[2017-12-23] MEDS ORDERED: PROTAMINE SULFATE 50 MG/5 ML VIAL IV ONE (11:10)
[2017-12-23 11:27] LABS: ABG HCO3 20.3 MMOL/L (20-26); ABG PCO2 36.4 MM HG (35-48); ABG TCO2 19.2 MMOL/L (23-27); Glucose Heart Surgery 197 MG/DL (74-106); Hematocrit Heart Surgery 20.2 PERCENT (42-52); Hemoglobin Heart Surgery 6.4 G/DL (14.0-18.0); Ionized Calcium Arterial 0.96 MMOL/L (1.21-1.46); PCO2 Patient Temp Arterial 36.4 MMHG; Patient Temperature 37 CELCIUS; Potassium Heart/CVR 5.5 MMOL/L (3.5-5.1); Sodium Heart/CVR 137 MMOL/L (135-145)
[2017-12-23] MEDS ORDERED: PHENYLEPHRINE DRIP 40 MG/250 ML PREMIX IV ONE (11:50)
[2017-12-23] MEDS ORDERED: MAGNESIUM SULF RIDER 2 GM in PREMIX 1 EACH IV PRN (12:41)
[2017-12-23] MEDS ORDERED: ONDANSETRON 4 MG/2 ML VIAL IV PRN (12:41)
[2017-12-23] MEDS ORDERED: MIDAZOLAM 2 MG/2 ML VIAL IV PRN (12:41)
[2017-12-23] MEDS ORDERED: SODIUM CHLORIDE 0.9% 250 ML IV PRN (12:41)
[2017-12-23] MEDS ORDERED: MORPHINE 4 MG/1 ML VIAL IV PRN (12:41)
[2017-12-23] MEDS ORDERED: MORPHINE 10 MG/1 ML VIAL IV PRN (12:41)
[2017-12-23] MEDS ORDERED: CHLORHEXIDINE 4% SOLN 118 ML BOTTLE TOP PRN (12:41)
[2017-12-23] MEDS ORDERED: MAGNESIUM SULF RIDER 4 GM in PREMIX 1 EACH IV PRN (12:41)
[2017-12-23] MEDS ORDERED: POTASSIUM CHLORIDE RIDER 20 MEQ in PREMIX 1 EACH IV PRN (12:41)
[2017-12-23] MEDS ORDERED: ACETAMINOPHEN 650 MG SUPP RECTAL PRN (12:41)
[2017-12-23] MEDS ORDERED: DEXTROSE 50% 25 GM/50 ML VIAL IV PRN ×2 (12:41)
[2017-12-23] MEDS ORDERED: POTASSIUM CHLORIDE RIDER 10 MEQ in PREMIX 1 EACH IV PRN (12:41)
[2017-12-23] MEDS ORDERED: CALCIUM CHLORIDE 1,000 MG/10 ML SYRINGE IV PRN (12:41)
[2017-12-23] MEDS ORDERED: INSULIN REGULAR 100 UNIT/ML IV PRN (12:41)
[2017-12-23] MEDS ORDERED: SEVOFLURANE 1 UNIT/15 MINUTE INH ONE (12:42)
[2017-12-23] MEDS ORDERED: ePHEDrine 50 MG/ML AMP ONE (12:53)
[2017-12-23 12:57] LABS: ABG Base Excess -4.3 MMOL/L (-2.5-2.5); ABG HCO3 20.9 MMOL/L (20-26); ABG PCO2 35.5 MM HG (35-48); ABG PH 7.368 (7.35-7.45); ABG TCO2 18.8 MMOL/L (23-27); Glucose Heart Surgery 188 MG/DL (74-106); Hematocrit Heart Surgery 29.2 PERCENT (42-52); Hemoglobin Heart Surgery 9.4 G/DL (14.0-18.0); Potassium Heart/CVR 5.5 MMOL/L (3.5-5.1)
[2017-12-23 12:59] LABS: Basophils % 0.2 % (0.0-0.8); Eosinophils % 0.3 % (0.00-10.9); Hematocrit 23.9 VOL% (42.0-52.0); Immature Granulocytes Absolute 0.18 #; Lymphocytes # 0.6 10*3/uL (1.4-4.0); Lymphocytes % 6.2 % (21.2-54.2); Mean Corpuscular HGB Conc 33.5 GM/DL (32-36); Mean Corpuscular Hemoglobin 31 PG (27-34); Mean Corpuscular Volume 93.7 FL (87-102); Mean Platelet Volume 10.4 FL (9.6-12.0); Monocytes # 0.4 10*3/uL (0.11-0.8); Monocytes % 4.3 % (1.7-12.7); Neutrophils # 7.7 10*3/uL (1.4-7.4); Platelet Count 135 T/CUMM (130-400); Red Blood Count 2.55 MC/CUMM (3.8-5.5); White Blood Count 8.9 T/CUMM (4-12)
[2017-12-23] MEDS ORDERED: SODIUM CHLORIDE 0.45% 1,000 ML IV SCH ×2 (13:00)
[2017-12-23] MEDS ORDERED: INSULIN REGULAR DRIP 100 ML IV SCH (13:00)
[2017-12-23 13:14] LABS: Blood Urea Nitrogen 51 MG/DL (7-18); Calcium 8.3 MG/DL (8.5-10.1); Glucose 192 MG/DL (74-106); Osmolality,Calculated 299.3 MOS/KG (273-304); Potassium 5.7 MMOL/L (3.5-5.1); Sodium 141 MMOL/L (136-145)
[2017-12-23 13:19] LABS: INR 1.1; PT Patient Result 11.8 SECS; Partial Thromboplastin Time 26.8 SECS (0-40)
[2017-12-23] MEDS: ALBUMIN 5% 12.5 GM in PREMIX 1 EACH IV PRN ×2 (13:45→14:01)
[2017-12-23 13:49] LABS: Lactic Acid 3.7 MMOL/L (0.4-2.0)
[2017-12-23] MEDS ORDERED: PHENYLEPHRINE DRIP 40 MG/250 ML PREMIX IV PRN (15:25)
[2017-12-23] MEDS ORDERED: CALCIUM GLUCONATE 1,000 MG in SODIUM CHLORIDE 0.9% 100 ML IV ONE (16:00)
[2017-12-23] MEDS ORDERED: ASPIRIN 325 MG TABLET PO ONE (19:56)
[2017-12-23 20:44] LABS: ABG HCO3 19.5 MMOL/L (20-26); ABG Oxygen Saturation 98.8 % (95-100); ABG PCO2 34.2 MM HG (35-48); ABG TCO2 17.5 MMOL/L (23-27); Glucose Heart Surgery 123 MG/DL (74-106); Hematocrit Heart Surgery 28.4 PERCENT (42-52); Hemoglobin Heart Surgery 9.2 G/DL (14.0-18.0); Potassium Heart/CVR 5.2 MMOL/L (3.5-5.1)
[2017-12-23] MEDS: CEFUROXIME INJ 1,500 MG in SYRINGE 1 EACH IV SCH (22:46)
[2017-12-24 04:22] LABS: Basophils % 0.1 % (0.0-0.8); Hematocrit 19.9 VOL% (42.0-52.0); Hemoglobin 6.5 GM/DL (14.0-18.0); Immature Granulocytes % 1.5 %; Lymphocytes # 0.5 10*3/uL (1.4-4.0); Lymphocytes % 3.5 % (21.2-54.2); Mean Corpuscular HGB Conc 32.7 GM/DL (32-36); Mean Corpuscular Hemoglobin 32 PG (27-34); Mean Corpuscular Volume 97.1 FL (87-102); Mean Platelet Volume 10.5 FL (9.6-12.0); Monocytes # 0.9 10*3/uL (0.11-0.8); Monocytes % 6.8 % (1.7-12.7); Neutrophils # 11.9 10*3/uL (1.4-7.4); Neutrophils % 88.1 % (38.7-73.9); Platelet Count 145 T/CUMM (130-400); Red Blood Count 2.05 MC/CUMM (3.8-5.5); Red Cell Distribution Width 17.3 % (9.3-17.3); White Blood Count 13.5 T/CUMM (4-12)
[2017-12-24 04:48] LABS: Band Neutrophils 6 % (0-10); Hypochromasia 1+; Lymphocytes 5 % (20-55); Platelet Estimate Adequate; Segmented Neutrophils 86 % (50-85); Total Cells Counted 100
[2017-12-24 04:49] LABS: Ovalocytes Slight
[2017-12-24 04:55] LABS: Calcium 6.5 MG/DL (8.5-10.1); Potassium 5.5 MMOL/L (3.5-5.1)
[2017-12-24] MEDS ORDERED: SODIUM CHLORIDE 0.9% 1,000 ML IV PRN (08:09)
[2017-12-24] MEDS: PANTOPRAZOLE 40 MG VIAL IV SCH (08:20)
[2017-12-24] MEDS: MULTIVITAMIN (BEROCCA) TABLET PO SCH (08:24)
[2017-12-24] MEDS: CHLORHEXIDINE 0.12% ORAL RINSE 60 ML BOTTLE SWISH/SPIT SCH ×2 (08:24→21:33)
[2017-12-24] MEDS: FUROSEMIDE 40 MG TABLET PO SCH (08:24)
[2017-12-24] MEDS: ASPIRIN EC 325 MG TABLET PO SCH (08:24)
[2017-12-24] MEDS: CEFUROXIME INJ 1,500 MG in SYRINGE 1 EACH IV SCH ×2 (08:25→21:34)
[2017-12-24] MEDS: INSULIN REGULAR 100 UNIT/ML SUBCUT SCH ×3 (12:16→21:34)
[2017-12-24] MEDS: HYDROmorphone 2 MG/1 ML VIAL IV PRN ×2 (14:16→20:54)
[2017-12-24 16:55] LABS: Hematocrit 26.1 VOL% (42.0-52.0)
[2017-12-24 17:12] LABS: Hemoglobin 8.8 GM/DL (14.0-18.0)
[2017-12-24] MEDS: ATORVASTATIN 40 MG TABLET PO SCH (21:34)
[2017-12-25] MEDS: INSULIN REGULAR 100 UNIT/ML SUBCUT SCH ×6 (01:47→22:18)
[2017-12-25 04:47] LABS: Basophils % 0.1 % (0.0-0.8); Hematocrit 26.4 VOL% (42.0-52.0); Hemoglobin 8.7 GM/DL (14.0-18.0); Immature Granulocytes % 1.7 %; Immature Granulocytes Absolute 0.17 #; Lymphocytes # 0.6 10*3/uL (1.4-4.0); Lymphocytes % 5.4 % (21.2-54.2); Mean Corpuscular Hemoglobin 31 PG (27-34); Mean Corpuscular Volume 95.3 FL (87-102); Mean Platelet Volume 10.3 FL (9.6-12.0); Monocytes % 9.6 % (1.7-12.7); NRBC # 0.03 10*3/uL; Neutrophils # 8.4 10*3/uL (1.4-7.4); Neutrophils % 83.2 % (38.7-73.9); Platelet Count 110 T/CUMM (130-400); Red Blood Count 2.77 MC/CUMM (3.8-5.5); Red Cell Distribution Width 16.3 % (9.3-17.3); White Blood Count 10.1 T/CUMM (4-12)
[2017-12-25 05:22] LABS: Osmolality,Calculated 294.7 MOS/KG (273-304); Potassium 4.9 MMOL/L (3.5-5.1)
[2017-12-25] MEDS: HYDROmorphone 2 MG/1 ML VIAL IV PRN ×4 (05:42→22:19)
[2017-12-25] MEDS: MULTIVITAMIN (BEROCCA) TABLET PO SCH (08:40)
[2017-12-25] MEDS: FUROSEMIDE 40 MG TABLET PO SCH (08:41)
[2017-12-25] MEDS: PANTOPRAZOLE 40 MG VIAL IV SCH (08:41)
[2017-12-25] MEDS: ASPIRIN EC 325 MG TABLET PO SCH (08:41)
[2017-12-25] MEDS: CHLORHEXIDINE 0.12% ORAL RINSE 60 ML BOTTLE SWISH/SPIT SCH ×2 (08:45→22:18)
[2017-12-25] MEDS: ATORVASTATIN 40 MG TABLET PO SCH (22:18)
[2017-12-26] MEDS: INSULIN REGULAR 100 UNIT/ML SUBCUT SCH ×6 (01:53→21:26)
[2017-12-26 04:42] LABS: Basophils % 0.2 % (0.0-0.8); Eosinophils % 0.3 % (0.00-10.9); Hematocrit 25.4 VOL% (42.0-52.0); Hemoglobin 8.5 GM/DL (14.0-18.0); Immature Granulocytes % 3.4 %; Lymphocytes # 0.7 10*3/uL (1.4-4.0); Lymphocytes % 8.3 % (21.2-54.2); Mean Corpuscular HGB Conc 33.5 GM/DL (32-36); Mean Corpuscular Hemoglobin 32 PG (27-34); Mean Corpuscular Volume 94.1 FL (87-102); Mean Platelet Volume 10.3 FL (9.6-12.0); Monocytes % 10.9 % (1.7-12.7); NRBC # 0.02 10*3/uL; Neutrophils # 6.9 10*3/uL (1.4-7.4); Neutrophils % 76.9 % (38.7-73.9); Platelet Count 119 T/CUMM (130-400); Red Cell Distribution Width 15.9 % (9.3-17.3)
[2017-12-26 05:13] LABS: Calcium 7.7 MG/DL (8.5-10.1); Osmolality,Calculated 300.7 MOS/KG (273-304); Potassium 4.5 MMOL/L (3.5-5.1)
[2017-12-26] MEDS: PANTOPRAZOLE 40 MG VIAL IV SCH (08:41)
[2017-12-26] MEDS: FUROSEMIDE 40 MG TABLET PO SCH (08:42)
[2017-12-26] MEDS: MULTIVITAMIN (BEROCCA) TABLET PO SCH (08:43)
[2017-12-26] MEDS: CHLORHEXIDINE 0.12% ORAL RINSE 60 ML BOTTLE SWISH/SPIT SCH ×2 (08:43→21:27)
[2017-12-26] MEDS: ASPIRIN EC 325 MG TABLET PO SCH (08:43)
[2017-12-26] MEDS: HYDROmorphone 2 MG/1 ML VIAL IV PRN ×3 (10:27→21:26)
[2017-12-26] MEDS: glipiZIDE 10 MG TABLET PO SCH (15:43)
[2017-12-26] MEDS: ATORVASTATIN 40 MG TABLET PO SCH (21:26)
[2017-12-26] MEDS ORDERED: POLYETHYLENE GLYCOL POWDER 17 GM PACK PO PRN (21:44)
[2017-12-26] MEDS: DOCUSATE SODIUM 100 MG CAPSULE PO SCH (23:06)
[2017-12-27] MEDS: INSULIN REGULAR 100 UNIT/ML SUBCUT SCH ×6 (00:55→22:04)
[2017-12-27] MEDS: HYDROmorphone 2 MG/1 ML VIAL IV PRN ×4 (02:05→21:23)
[2017-12-27 05:34] LABS: Hemoglobin 8.2 GM/DL (14.0-18.0); Red Blood Count 2.61 MC/CUMM (3.8-5.5); White Blood Count 6.8 T/CUMM (4-12)
[2017-12-27 05:35] LABS: Basophils % 0.3 % (0.0-0.8); Eosinophils # 0.1 10*3/uL (0.0-0.87); Eosinophils % 1.9 % (0.00-10.9); Immature Granulocytes % 4.4 %; Lymphocytes # 0.8 10*3/uL (1.4-4.0); Lymphocytes % 12.2 % (21.2-54.2); Mean Corpuscular HGB Conc 32.8 GM/DL (32-36); Mean Corpuscular Hemoglobin 31 PG (27-34); Mean Corpuscular Volume 95.8 FL (87-102); Mean Platelet Volume 10.5 FL (9.6-12.0); Monocytes # 0.8 10*3/uL (0.11-0.8); Monocytes % 11.3 % (1.7-12.7); NRBC # 0.02 10*3/uL; Neutrophils # 4.8 10*3/uL (1.4-7.4); Neutrophils % 69.9 % (38.7-73.9); Platelet Count 116 T/CUMM (130-400); Red Cell Distribution Width 15.6 % (9.3-17.3)
[2017-12-27 06:02] LABS: Osmolality,Calculated 304.4 MOS/KG (273-304); Potassium 3.9 MMOL/L (3.5-5.1)
[2017-12-27] MEDS: PANTOPRAZOLE 40 MG VIAL IV SCH (09:39)
[2017-12-27] MEDS: ASPIRIN EC 325 MG TABLET PO SCH (09:39)
[2017-12-27] MEDS: CHLORHEXIDINE 0.12% ORAL RINSE 60 ML BOTTLE SWISH/SPIT SCH ×2 (09:39→21:23)
[2017-12-27] MEDS: MULTIVITAMIN (BEROCCA) TABLET PO SCH (09:39)
[2017-12-27] MEDS: glipiZIDE 10 MG TABLET PO SCH ×2 (09:39→16:07)
[2017-12-27] MEDS: DOCUSATE SODIUM 100 MG CAPSULE PO SCH ×2 (09:40→21:23)
[2017-12-27] MEDS: FUROSEMIDE 40 MG TABLET PO SCH (09:40)
[2017-12-27 09:42] LABS: Basophils % 0.3 % (0.0-0.8); Eosinophils # 0.2 10*3/uL (0.0-0.87); Eosinophils % 2.3 % (0.00-10.9); Hematocrit 28.2 VOL% (42.0-52.0); Hemoglobin 9.2 GM/DL (14.0-18.0); Immature Granulocytes % 4.4 %; Immature Granulocytes Absolute 0.33 #; Lymphocytes # 0.8 10*3/uL (1.4-4.0); Lymphocytes % 10.5 % (21.2-54.2); Mean Corpuscular HGB Conc 32.6 GM/DL (32-36); Mean Corpuscular Hemoglobin 31 PG (27-34); Mean Corpuscular Volume 95.6 FL (87-102); Mean Platelet Volume 10.1 FL (9.6-12.0); Monocytes # 0.8 10*3/uL (0.11-0.8); Monocytes % 11.1 % (1.7-12.7); NRBC # 0.02 10*3/uL; Neutrophils # 5.4 10*3/uL (1.4-7.4); Neutrophils % 71.4 % (38.7-73.9); Platelet Count 142 T/CUMM (130-400); Red Blood Count 2.95 MC/CUMM (3.8-5.5); Red Cell Distribution Width 15.5 % (9.3-17.3); White Blood Count 7.6 T/CUMM (4-12)
[2017-12-27 10:29] LABS: Calcium 8.3 MG/DL (8.5-10.1); Osmolality,Calculated 304.4 MOS/KG (273-304); Potassium 3.9 MMOL/L (3.5-5.1)
[2017-12-27] MEDS: ATORVASTATIN 40 MG TABLET PO SCH (21:23)
[2017-12-28] MEDS: HYDROmorphone 2 MG/1 ML VIAL IV PRN (00:58)
[2017-12-28 04:24] LABS: Basophils % 0.4 % (0.0-0.8); Eosinophils # 0.1 10*3/uL (0.0-0.87); Eosinophils % 1.9 % (0.00-10.9); Hematocrit 26.2 VOL% (42.0-52.0); Hemoglobin 8.6 GM/DL (14.0-18.0); Immature Granulocytes % 4.7 %; Immature Granulocytes Absolute 0.33 #; Lymphocytes # 0.7 10*3/uL (1.4-4.0); Lymphocytes % 10.1 % (21.2-54.2); Mean Corpuscular HGB Conc 32.8 GM/DL (32-36); Mean Corpuscular Hemoglobin 31 PG (27-34); Mean Corpuscular Volume 95.3 FL (87-102); Mean Platelet Volume 10.3 FL (9.6-12.0); Monocytes # 0.8 10*3/uL (0.11-0.8); Monocytes % 11.6 % (1.7-12.7); Neutrophils % 71.3 % (38.7-73.9); Platelet Count 141 T/CUMM (130-400); Red Blood Count 2.75 MC/CUMM (3.8-5.5); Red Cell Distribution Width 15.3 % (9.3-17.3)
[2017-12-28 04:57] LABS: Calcium 8.2 MG/DL (8.5-10.1); Osmolality,Calculated 307.3 MOS/KG (273-304); Potassium 3.7 MMOL/L (3.5-5.1)
[2017-12-28] MEDS: CLORAZEPATE 3.75 MG TABLET PO PRN ×2 (05:50→12:32)
[2017-12-28 07:29] LABS: Apearance,Urine Clear (Clear); Bilirubin,Urine Negative (Negative); Glucose,Urine (UA) Negative (Negative); Ketones,Urine Negative (Negative); Nitrite,Urine Negative (Negative); Protein,Urine 100 MG/DL; Urine Color Yellow (Yellow)
[2017-12-28 07:30] LABS: Blood, Urine Small mg/dL (Negative); RBC,Urine 1 /HPF (0-4); Urine Urobilinogen < 2.0 EU/DL (0.2-1.0); WBC,Urine 1 /HPF (0-6)
[2017-12-28 07:31] LABS: Bacteria,Urine Occasional /HPF (Few); Mucus,Urine Occasional /LPF (Occasional)
[2017-12-28] MEDS: CITALOPRAM 40 MG TABLET PO SCH (08:52)
[2017-12-28] MEDS: PANTOPRAZOLE 40 MG VIAL IV SCH (08:52)
[2017-12-28] MEDS: MULTIVITAMIN (BEROCCA) TABLET PO SCH (08:53)
[2017-12-28] MEDS: FUROSEMIDE 40 MG TABLET PO SCH (08:53)
[2017-12-28] MEDS: CARVEDILOL 3.125 MG TABLET PO SCH ×2 (08:53→21:29)
[2017-12-28] MEDS: DOCUSATE SODIUM 100 MG CAPSULE PO SCH ×2 (08:53→21:29)
[2017-12-28] MEDS: ASPIRIN EC 325 MG TABLET PO SCH (08:53)
[2017-12-28] MEDS: CHLORHEXIDINE 0.12% ORAL RINSE 60 ML BOTTLE SWISH/SPIT SCH ×2 (08:53→21:30)
[2017-12-28] MEDS: glipiZIDE 10 MG TABLET PO SCH ×2 (08:53→17:13)
[2017-12-28] MEDS: INSULIN REGULAR 100 UNIT/ML SUBCUT SCH ×4 (08:54→21:24)
[2017-12-28] MEDS ORDERED: traMADol 50 MG TABLET PO PRN (09:09)
[2017-12-28] MEDS: LOSARTAN 25 MG TABLET PO SCH ×2 (09:31→21:29)
[2017-12-28] MEDS ORDERED: chlordiazePOXIDE 10 MG CAPSULE PO SCH (21:00)
[2017-12-28] MEDS ORDERED: MELATONIN 3 MG TABLET PO SCH (21:00)
[2017-12-28] MEDS: ATORVASTATIN 40 MG TABLET PO SCH (21:29)
[2017-12-29 04:56] LABS: Basophils % 0.4 % (0.0-0.8); Eosinophils # 0.1 10*3/uL (0.0-0.87); Eosinophils % 1.8 % (0.00-10.9); Hematocrit 27.2 VOL% (42.0-52.0); Hemoglobin 8.9 GM/DL (14.0-18.0); Immature Granulocytes % 4.7 %; Immature Granulocytes Absolute 0.36 #; Lymphocytes # 0.8 10*3/uL (1.4-4.0); Lymphocytes % 10.8 % (21.2-54.2); Mean Corpuscular HGB Conc 32.7 GM/DL (32-36); Mean Corpuscular Hemoglobin 31 PG (27-34); Mean Corpuscular Volume 94.8 FL (87-102); Mean Platelet Volume 10.5 FL (9.6-12.0); Monocytes # 0.8 10*3/uL (0.11-0.8); Monocytes % 10.3 % (1.7-12.7); Neutrophils # 5.5 10*3/uL (1.4-7.4); Platelet Count 160 T/CUMM (130-400); Red Blood Count 2.87 MC/CUMM (3.8-5.5); Red Cell Distribution Width 15.3 % (9.3-17.3); White Blood Count 7.7 T/CUMM (4-12)
[2017-12-29 05:45] LABS: Calcium 8.9 MG/DL (8.5-10.1); Osmolality,Calculated 305.3 MOS/KG (273-304); Potassium 3.6 MMOL/L (3.5-5.1)
[2017-12-29] MEDS: INSULIN REGULAR 100 UNIT/ML SUBCUT SCH ×2 (09:10→13:17)
[2017-12-29] MEDS: CARVEDILOL 3.125 MG TABLET PO SCH (09:12)
[2017-12-29] MEDS: DOCUSATE SODIUM 100 MG CAPSULE PO SCH (09:12)
[2017-12-29] MEDS: LOSARTAN 25 MG TABLET PO SCH (09:12)
[2017-12-29] MEDS: glipiZIDE 10 MG TABLET PO SCH (09:12)
[2017-12-29] MEDS: CITALOPRAM 40 MG TABLET PO SCH (09:12)
[2017-12-29] MEDS: ASPIRIN EC 325 MG TABLET PO SCH (09:12)
[2017-12-29] MEDS: CHLORHEXIDINE 0.12% ORAL RINSE 60 ML BOTTLE SWISH/SPIT SCH (09:12)
[2017-12-29] MEDS: MULTIVITAMIN (BEROCCA) TABLET PO SCH (09:12)
[2017-12-29] MEDS: PANTOPRAZOLE 40 MG VIAL IV SCH (09:12)
[2017-12-29 12:25] VITALS: BP 121/77
== END 2017-12-29 13:23 | DRG 233 ==
LOC: N.ED 18:06 → N.EDINP 18:06 → SUATTDRO 20:24 → N.5E 21:54 → N.TELEN 12-18 15:36 → SUATTDRO 12-19 09:28 → N.CVR 12-23 09:22 → N.ICU 12-24 16:09 → N.TELES 12-25 14:12
PROVIDERS: ADMIT Internal Medicine; ATTEND Internal Medicine
PROC: CLCCHCL (ICD-10-PCS; 2017-12-17 12:45)

== ENCOUNTER 2018-06-15 20:59 | Inpatient (IN) ==
[2018-06-15] MEDS ORDERED: ONDANSETRON 4 MG/2 ML VIAL ONE (21:16)
[2018-06-15 21:37] LABS: Basophils % 0.2 % (0.0-0.8); Eosinophils # 0.2 10*3/uL (0.0-0.87); Eosinophils % 1.6 % (0.00-10.9); Immature Granulocytes % 3.2 %; Immature Granulocytes Absolute 0.42 #; Lymphocytes # 1.4 10*3/uL (1.4-4.0); Lymphocytes % 10.2 % (21.2-54.2); Mean Corpuscular Hemoglobin 33 PG (27-34); Mean Corpuscular Volume 102.4 FL (87-102); Mean Platelet Volume 11.4 FL (9.6-12.0); Monocytes # 0.9 10*3/uL (0.11-0.8); Monocytes % 6.5 % (1.7-12.7); NRBC # 0.02 10*3/uL; Neutrophils # 10.5 10*3/uL (1.4-7.4); Neutrophils % 78.3 % (38.7-73.9); Platelet Count 226 T/CUMM (130-400); Red Blood Count 1.68 MC/CUMM (3.8-5.5); Red Cell Distribution Width 15.5 % (9.3-17.3); White Blood Count 13.3 T/CUMM (4-12)
[2018-06-15 21:41] LABS: Hemoglobin 5.5 GM/DL (14.0-18.0)
[2018-06-15] MEDS ORDERED: HYDROmorphone 2 MG/1 ML VIAL IV STA ×2 (21:41→23:09)
[2018-06-15] MEDS ORDERED: ONDANSETRON 4 MG/2 ML VIAL IV STA (21:41)
[2018-06-15] MEDS ORDERED: ASPIRIN 325 MG TABLET PO STA (21:41)
[2018-06-15] MEDS ORDERED: NITROGLYCERIN 2% OINT 1 INCH/GM PACK TOP STA (21:41)
[2018-06-15] MEDS ORDERED: FUROSEMIDE 40 MG/4 ML VIAL IV STA (21:41)
[2018-06-15 21:42] LABS: Hematocrit 17.2 VOL% (42.0-52.0)
[2018-06-15 21:53] LABS: Alanine Aminotransferase 18 U/L (16-61); Albumin 2.7 G/DL (3.4-5.0); Alkaline Phosphatase 109 U/L (45-117); Aspartate Amino Transferase 28 U/L (0-37); Bilirubin,Total < 0.39 MG/DL (0.2-1.0); Blood Urea Nitrogen 123 MG/DL (7-18); Calcium 7.3 MG/DL (8.5-10.1); Glucose 175 MG/DL (74-106); Osmolality,Calculated 317.7 MOS/KG (273-304); Sodium 138 MMOL/L (136-145); Total Protein 6.4 G/DL (6.4-8.3); Troponin I 0.301 NG/ML (0.00-0.045)
[2018-06-15 22:31] LABS: PT Patient Result 10.8 SECS
[2018-06-15] MEDS ORDERED: SODIUM CHLORIDE 0.9% 1,000 ML IV PRN (23:44)
[2018-06-15] MEDS ORDERED: MAGNESIUM SULF RIDER 4 GM in PREMIX 1 EACH IV PRN (23:44)
[2018-06-15] MEDS ORDERED: SODIUM CHLORIDE 0.9% 1,000 ML IV SCH (23:44)
[2018-06-15] MEDS ORDERED: MAGNESIUM SULF RIDER 2 GM in PREMIX 1 EACH IV PRN (23:44)
[2018-06-15] MEDS ORDERED: GLUCAGON 1 MG VIAL IM PRN (23:44)
[2018-06-15] MEDS ORDERED: ONDANSETRON 4 MG/2 ML VIAL IV PRN (23:44)
[2018-06-15] MEDS ORDERED: POTASSIUM CHLORIDE 20 MEQ TABLET PO PRN (23:44)
[2018-06-15] MEDS ORDERED: DEXTROSE 50% 25 GM/50 ML SYRINGE IV PRN (23:44)
[2018-06-15] MEDS ORDERED: METOPROLOL TARTRATE 5 MG/5 ML VIAL IV ONE (23:53)
[2018-06-16 00:42] LABS: Basophils # 0.1 10*3/uL (0.0-0.2); Basophils % 0.4 % (0.0-0.8); Eosinophils # 0.2 10*3/uL (0.0-0.87); Eosinophils % 1.2 % (0.00-10.9); Hematocrit 20.3 VOL% (42.0-52.0); Immature Granulocytes % 4.2 %; Immature Granulocytes Absolute 0.66 #; Lymphocytes # 2.7 10*3/uL (1.4-4.0); Lymphocytes % 17.5 % (21.2-54.2); Mean Corpuscular HGB Conc 31.5 GM/DL (32-36); Mean Corpuscular Hemoglobin 33 PG (27-34); Monocytes # 1.2 10*3/uL (0.11-0.8); Monocytes % 7.7 % (1.7-12.7); NRBC # 0.07 10*3/uL; Neutrophils # 10.7 10*3/uL (1.4-7.4); Platelet Count 249 T/CUMM (130-400); Red Blood Count 1.97 MC/CUMM (3.8-5.5); Red Cell Distribution Width 15.5 % (9.3-17.3); White Blood Count 15.6 T/CUMM (4-12)
[2018-06-16 00:45] LABS: Hemoglobin 6.4 GM/DL (14.0-18.0)
[2018-06-16 00:56] LABS: Troponin I 3.58 NG/ML (0.00-0.045)
[2018-06-16 01:11] LABS: Eosinophils 3 % (0-10); Lymphocytes 20 % (20-55); Myelocytes 1 %; Segmented Neutrophils 69 % (50-85); Total Cells Counted 100
[2018-06-16 01:13] LABS: Hypochromasia 1+; Platelet Estimate Normal; Polychromasia Few
[2018-06-16 01:14] LABS: Microcytosis 1+
[2018-06-16] MEDS: INSULIN REGULAR 100 UNIT/ML SUBCUT SCH ×4 (03:17→19:24)
[2018-06-16 03:50] LABS: Basophils % 0.3 % (0.0-0.8); Eosinophils # 0.1 10*3/uL (0.0-0.87); Eosinophils % 0.7 % (0.00-10.9); Hematocrit 20.5 VOL% (42.0-52.0); Immature Granulocytes % 4.1 %; Immature Granulocytes Absolute 0.66 #; Lymphocytes # 1.3 10*3/uL (1.4-4.0); Lymphocytes % 8.4 % (21.2-54.2); Mean Corpuscular HGB Conc 31.2 GM/DL (32-36); Mean Corpuscular Hemoglobin 33 PG (27-34); Mean Corpuscular Volume 105.1 FL (87-102); Mean Platelet Volume 11.4 FL (9.6-12.0); Monocytes # 1.3 10*3/uL (0.11-0.8); Monocytes % 8.1 % (1.7-12.7); NRBC # 0.08 10*3/uL; Neutrophils # 12.5 10*3/uL (1.4-7.4); Neutrophils % 78.4 % (38.7-73.9); Platelet Count 242 T/CUMM (130-400); Red Blood Count 1.95 MC/CUMM (3.8-5.5); Red Cell Distribution Width 15.8 % (9.3-17.3)
[2018-06-16 03:55] LABS: Hemoglobin 6.4 GM/DL (14.0-18.0)
[2018-06-16 04:03] LABS: Albumin 2.8 G/DL (3.4-5.0); Bilirubin,Total 0.4 MG/DL (0.2-1.0); Calcium 7.3 MG/DL (8.5-10.1); Risk Ratio 4.83; Total Protein 6.8 G/DL (6.4-8.3)
[2018-06-16 04:07] LABS: Potassium 6.6 MMOL/L (3.5-5.1)
[2018-06-16 04:16] LABS: Band Neutrophils 1 % (0-10); Eosinophils 1 % (0-10); Hypochromasia 1+; Lymphocytes 9 % (20-55); Microcytosis Slight; Nucleated Red Blood Cells 1 (0-5); Ovalocytes Slight; Platelet Estimate Adequate; Segmented Neutrophils 82 % (50-85); Total Cells Counted 100
[2018-06-16] MEDS ORDERED: SODIUM CHLORIDE 0.9% 250 ML IV ONE (05:20)
[2018-06-16] MEDS ORDERED: NOREPINEPHRINE 8 MG in SODIUM CHLORIDE 0.9% 242 ML IV PRN (06:40)
[2018-06-16] MEDS ORDERED: NOREPINEPHRINE 4 MG/4 ML VIAL IV ONE (07:22)
[2018-06-16] MEDS ORDERED: glipiZIDE 10 MG TABLET PO SCH (07:30)
[2018-06-16] MEDS ORDERED: SODIUM POLYSTYRENE SULFATE 15 GM/60 ML BOTTLE PO ONE (07:30)
[2018-06-16] MEDS ORDERED: CARVEDILOL 6.25 MG TABLET PO SCH (08:00)
[2018-06-16] MEDS ORDERED: amLODIPine 5 MG TABLET PO SCH (09:00)
[2018-06-16] MEDS ORDERED: ISOSORBIDE MONONITRATE 30 MG TABLET PO SCH (09:00)
[2018-06-16] MEDS ORDERED: LOSARTAN 50 MG TABLET PO SCH (09:00)
[2018-06-16] MEDS: CITALOPRAM 40 MG TABLET PO SCH (09:28)
[2018-06-16 11:07] LABS: Hematocrit 23.5 VOL% (42.0-52.0); Hemoglobin 7.5 GM/DL (14.0-18.0)
[2018-06-16 11:40] LABS: CKMB % 4.6 %
[2018-06-16 11:42] LABS: Osmolality,Calculated 314.5 MOS/KG (273-304); Potassium 5.2 MMOL/L (3.5-5.1)
[2018-06-16 11:46] LABS: Troponin I 10.6 NG/ML (0.00-0.045)
[2018-06-16] MEDS: SEVELAMER CARBONATE 800 MG TABLET PO SCH ×2 (15:20→21:59)
[2018-06-16 16:35] LABS: CKMB % 2.9 %
[2018-06-16 16:38] LABS: Troponin I 13.4 NG/ML (0.00-0.045)
[2018-06-16] MEDS: DIVALPROEX 500 MG TABLET PO SCH ×2 (17:33→21:59)
[2018-06-16 18:51] LABS: Hematocrit 20.1 VOL% (42.0-52.0)
[2018-06-16 18:56] LABS: Hemoglobin 6.3 GM/DL (14.0-18.0)
[2018-06-16] MEDS: DOCUSATE SODIUM 100 MG CAPSULE PO SCH (21:58)
[2018-06-16] MEDS: ROSUVASTATIN 20 MG TABLET PO SCH (21:58)
[2018-06-17] MEDS: INSULIN REGULAR 100 UNIT/ML SUBCUT SCH ×3 (02:22→11:41)
[2018-06-17 08:18] LABS: Basophils % 0.3 % (0.0-0.8); Eosinophils # 0.2 10*3/uL (0.0-0.87); Eosinophils % 2.5 % (0.00-10.9); Hematocrit 24.5 VOL% (42.0-52.0); Immature Granulocytes % 1.4 %; Lymphocytes # 0.8 10*3/uL (1.4-4.0); Lymphocytes % 11.1 % (21.2-54.2); Mean Corpuscular HGB Conc 31.8 GM/DL (32-36); Mean Corpuscular Hemoglobin 30 PG (27-34); Mean Corpuscular Volume 95.3 FL (87-102); Mean Platelet Volume 10.4 FL (9.6-12.0); Monocytes # 0.6 10*3/uL (0.11-0.8); Neutrophils # 5.3 10*3/uL (1.4-7.4); Neutrophils % 76.7 % (38.7-73.9); Red Cell Distribution Width 16.9 % (9.3-17.3)
[2018-06-17 08:19] LABS: White Blood Count 6.9 T/CUMM (4-12)
[2018-06-17 08:20] LABS: Red Blood Count 2.57 MC/CUMM (3.8-5.5)
[2018-06-17 08:21] LABS: Hemoglobin 7.8 GM/DL (14.0-18.0); Platelet Count 129 T/CUMM (130-400)
[2018-06-17 08:34] LABS: Alanine Aminotransferase 25 U/L (16-61); Albumin 2.6 G/DL (3.4-5.0); Alkaline Phosphatase 103 U/L (45-117); Aspartate Amino Transferase 48 U/L (0-37); Bilirubin,Total < 0.39 MG/DL (0.2-1.0); Blood Urea Nitrogen 106 MG/DL (7-18); Calcium 7.3 MG/DL (8.5-10.1); Glucose 100 MG/DL (74-106); Osmolality,Calculated 313.3 MOS/KG (273-304); Potassium 3.6 MMOL/L (3.5-5.1); Sodium 141 MMOL/L (136-145); Total Protein 6.4 G/DL (6.4-8.3)
[2018-06-17 09:00] LABS: Anisocytosis Slight; Giant Platelets Few; Platelet Estimate Adequate
[2018-06-17 10:01] LABS: Hematocrit 24.5 VOL% (42.0-52.0)
[2018-06-17] MEDS: DOCUSATE SODIUM 100 MG CAPSULE PO SCH ×2 (11:58→22:00)
[2018-06-17] MEDS: MULTIVITAMIN (BEROCCA) TABLET PO SCH (11:58)
[2018-06-17] MEDS: CITALOPRAM 40 MG TABLET PO SCH (11:58)
[2018-06-17] MEDS: DIVALPROEX 500 MG TABLET PO SCH ×2 (11:58→22:00)
[2018-06-17] MEDS: SEVELAMER CARBONATE 800 MG TABLET PO SCH ×3 (11:59→22:00)
[2018-06-17] MEDS ORDERED: ALBUTEROL/IPRATROPIUM 3 ML NEB RESP TX ONE (12:41)
[2018-06-17] MEDS ORDERED: PROPOFOL 200 MG/20 ML VIAL IV ONE (13:25)
[2018-06-17] MEDS ORDERED: ETOMIDATE 20 MG/10 ML VIAL IV ONE (13:25)
[2018-06-17] MEDS: CARVEDILOL 6.25 MG TABLET PO SCH ×2 (14:12→22:00)
[2018-06-17] MEDS: ROSUVASTATIN 20 MG TABLET PO SCH (22:00)
[2018-06-18] MEDS: INSULIN REGULAR 100 UNIT/ML SUBCUT SCH ×5 (01:46→17:54)
[2018-06-18 04:18] LABS: Basophils % 0.2 % (0.0-0.8); Eosinophils # 0.1 10*3/uL (0.0-0.87); Eosinophils % 2.8 % (0.00-10.9); Hematocrit 23.9 VOL% (42.0-52.0); Hemoglobin 7.7 GM/DL (14.0-18.0); Immature Granulocytes % 1.7 %; Immature Granulocytes Absolute 0.08 #; Lymphocytes # 0.6 10*3/uL (1.4-4.0); Lymphocytes % 12.8 % (21.2-54.2); Mean Corpuscular HGB Conc 32.2 GM/DL (32-36); Mean Corpuscular Hemoglobin 31 PG (27-34); Mean Corpuscular Volume 95.6 FL (87-102); Mean Platelet Volume 10.9 FL (9.6-12.0); Monocytes # 0.6 10*3/uL (0.11-0.8); Monocytes % 13.2 % (1.7-12.7); Neutrophils # 3.3 10*3/uL (1.4-7.4); Neutrophils % 69.3 % (38.7-73.9); Platelet Count 115 T/CUMM (130-400); Red Cell Distribution Width 16.6 % (9.3-17.3); White Blood Count 4.7 T/CUMM (4-12)
[2018-06-18 04:33] LABS: Calcium 7.3 MG/DL (8.5-10.1); Osmolality,Calculated 311.3 MOS/KG (273-304); Potassium 3.7 MMOL/L (3.5-5.1)
[2018-06-18] MEDS: CARVEDILOL 6.25 MG TABLET PO SCH ×2 (09:50→22:12)
[2018-06-18] MEDS: DIVALPROEX 500 MG TABLET PO SCH ×2 (09:50→22:12)
[2018-06-18] MEDS: MULTIVITAMIN (BEROCCA) TABLET PO SCH (09:50)
[2018-06-18] MEDS: SEVELAMER CARBONATE 800 MG TABLET PO SCH ×3 (09:50→22:12)
[2018-06-18] MEDS: DOCUSATE SODIUM 100 MG CAPSULE PO SCH ×2 (09:51→22:12)
[2018-06-18] MEDS: CITALOPRAM 40 MG TABLET PO SCH (09:51)
[2018-06-18] MEDS ORDERED: MAGNESIUM SULF RIDER 2 GM in PREMIX 1 EACH IV ONE (11:17)
[2018-06-18] MEDS: ISOSORBIDE MONONITRATE 30 MG TABLET PO SCH (13:02)
[2018-06-18] MEDS: ROSUVASTATIN 20 MG TABLET PO SCH (22:12)
[2018-06-19] MEDS: INSULIN REGULAR 100 UNIT/ML SUBCUT SCH ×4 (02:02→17:18)
[2018-06-19 04:13] LABS: Basophils % 0.5 % (0.0-0.8); Eosinophils # 0.1 10*3/uL (0.0-0.87); Eosinophils % 2.7 % (0.00-10.9); Hematocrit 27.1 VOL% (42.0-52.0); Hemoglobin 8.5 GM/DL (14.0-18.0); Immature Granulocytes % 0.9 %; Immature Granulocytes Absolute 0.04 #; Lymphocytes # 0.7 10*3/uL (1.4-4.0); Lymphocytes % 15.4 % (21.2-54.2); Mean Corpuscular HGB Conc 31.4 GM/DL (32-36); Mean Corpuscular Hemoglobin 30 PG (27-34); Mean Corpuscular Volume 96.1 FL (87-102); Mean Platelet Volume 10.2 FL (9.6-12.0); Monocytes # 0.7 10*3/uL (0.11-0.8); Monocytes % 15.8 % (1.7-12.7); Neutrophils # 2.9 10*3/uL (1.4-7.4); Neutrophils % 64.7 % (38.7-73.9); Platelet Count 134 T/CUMM (130-400); Red Blood Count 2.82 MC/CUMM (3.8-5.5); Red Cell Distribution Width 15.9 % (9.3-17.3); White Blood Count 4.4 T/CUMM (4-12)
[2018-06-19 04:50] LABS: Albumin 2.5 G/DL (3.4-5.0); Bilirubin,Total 0.9 MG/DL (0.2-1.0); Potassium 3.9 MMOL/L (3.5-5.1); Total Protein 6.2 G/DL (6.4-8.3)
[2018-06-19 05:46] LABS: Anisocytosis 1+; Band Neutrophils 2 % (0-10); Eosinophils 7 % (0-10); Lymphocytes 14 % (20-55); Macrocytosis 1+; Metamyelocytes 1 %; Platelet Estimate Decreased; Polychromasia 2+; Segmented Neutrophils 64 % (50-85); Total Cells Counted 100
[2018-06-19] MEDS ORDERED: ERGOCALCIFEROL 50,000 UNIT CAPSULE PO SCH (09:00)
[2018-06-19] MEDS: DIVALPROEX 500 MG TABLET PO SCH ×2 (09:39→21:02)
[2018-06-19] MEDS: ISOSORBIDE MONONITRATE 30 MG TABLET PO SCH (09:39)
[2018-06-19] MEDS: MULTIVITAMIN (BEROCCA) TABLET PO SCH (09:39)
[2018-06-19] MEDS: DOCUSATE SODIUM 100 MG CAPSULE PO SCH ×2 (09:39→21:03)
[2018-06-19] MEDS: SEVELAMER CARBONATE 800 MG TABLET PO SCH ×3 (09:39→21:02)
[2018-06-19] MEDS: CITALOPRAM 40 MG TABLET PO SCH (09:39)
[2018-06-19] MEDS: CARVEDILOL 6.25 MG TABLET PO SCH (09:39)
[2018-06-19] MEDS ORDERED: CARVEDILOL 6.25 MG TABLET PO ONE (11:54)
[2018-06-19] MEDS: ROSUVASTATIN 20 MG TABLET PO SCH (21:02)
[2018-06-19] MEDS: CARVEDILOL 12.5 MG TABLET PO SCH (21:03)
[2018-06-20] MEDS: INSULIN REGULAR 100 UNIT/ML SUBCUT SCH ×4 (00:19→17:29)
[2018-06-20] MEDS: ISOSORBIDE MONONITRATE 30 MG TABLET PO SCH (10:26)
[2018-06-20] MEDS: MULTIVITAMIN (BEROCCA) TABLET PO SCH (10:26)
[2018-06-20] MEDS: CARVEDILOL 12.5 MG TABLET PO SCH ×2 (10:28→21:00)
[2018-06-20] MEDS: DIVALPROEX 500 MG TABLET PO SCH ×2 (10:28→20:59)
[2018-06-20] MEDS: DOCUSATE SODIUM 100 MG CAPSULE PO SCH ×2 (10:28→21:00)
[2018-06-20] MEDS: CITALOPRAM 40 MG TABLET PO SCH (10:29)
[2018-06-20] MEDS: SEVELAMER CARBONATE 800 MG TABLET PO SCH ×3 (10:29→20:59)
[2018-06-20] MEDS: ROSUVASTATIN 20 MG TABLET PO SCH (20:59)
[2018-06-21] MEDS: INSULIN REGULAR 100 UNIT/ML SUBCUT SCH ×4 (00:26→18:24)
[2018-06-21] MEDS: HYDROmorphone 2 MG/1 ML VIAL IV PRN (00:28)
[2018-06-21 05:45] LABS: Basophils % 0.3 % (0.0-0.8); Eosinophils # 0.1 10*3/uL (0.0-0.87); Eosinophils % 1.8 % (0.00-10.9); Hematocrit 31.4 VOL% (42.0-52.0); Immature Granulocytes % 1.3 %; Lymphocytes # 1.1 10*3/uL (1.4-4.0); Lymphocytes % 14.5 % (21.2-54.2); Mean Corpuscular HGB Conc 31.8 GM/DL (32-36); Mean Corpuscular Hemoglobin 30 PG (27-34); Mean Corpuscular Volume 95.4 FL (87-102); Mean Platelet Volume 10.3 FL (9.6-12.0); Monocytes % 12.1 % (1.7-12.7); Neutrophils # 5.5 10*3/uL (1.4-7.4); Platelet Count 177 T/CUMM (130-400); Red Blood Count 3.29 MC/CUMM (3.8-5.5); Red Cell Distribution Width 15.2 % (9.3-17.3); White Blood Count 7.9 T/CUMM (4-12)
[2018-06-21 05:53] LABS: Calcium 8.7 MG/DL (8.5-10.1); Osmolality,Calculated 307.1 MOS/KG (273-304); Potassium 4.2 MMOL/L (3.5-5.1)
[2018-06-21] MEDS ORDERED: ACETAMINOPHEN 325 MG TABLET PO PRN (08:56)
[2018-06-21] MEDS: traMADol 50 MG TABLET PO PRN (09:36)
[2018-06-21] MEDS: SEVELAMER CARBONATE 800 MG TABLET PO SCH ×3 (09:36→21:11)
[2018-06-21] MEDS: CITALOPRAM 40 MG TABLET PO SCH (09:36)
[2018-06-21] MEDS: DOCUSATE SODIUM 100 MG CAPSULE PO SCH ×2 (09:36→21:11)
[2018-06-21] MEDS: DIVALPROEX 500 MG TABLET PO SCH ×2 (09:36→21:11)
[2018-06-21] MEDS: ISOSORBIDE MONONITRATE 30 MG TABLET PO SCH (09:36)
[2018-06-21] MEDS: MULTIVITAMIN (BEROCCA) TABLET PO SCH (09:36)
[2018-06-21] MEDS: CARVEDILOL 12.5 MG TABLET PO SCH ×2 (09:37→21:11)
[2018-06-21] MEDS ORDERED: BISACODYL 5 MG TABLET PO ONE (16:00)
[2018-06-21] MEDS ORDERED: POLYETHYLENE GLYCOL POWDER 255 GM BOTTLE PO ONE (17:00)
[2018-06-21] MEDS: ROSUVASTATIN 20 MG TABLET PO SCH (21:11)
[2018-06-22] MEDS: INSULIN REGULAR 100 UNIT/ML SUBCUT SCH ×4 (00:44→18:22)
[2018-06-22] MEDS: POLYETHYLENE GLYCOL POWDER 255 GM BOTTLE PO ONE ×2 (05:00→06:05)
[2018-06-22 05:44] LABS: Basophils % 0.3 % (0.0-0.8); Eosinophils # 0.2 10*3/uL (0.0-0.87); Eosinophils % 2.3 % (0.00-10.9); Hematocrit 29.1 VOL% (42.0-52.0); Hemoglobin 9.3 GM/DL (14.0-18.0); Immature Granulocytes Absolute 0.07 #; Lymphocytes % 14.5 % (21.2-54.2); Mean Corpuscular Hemoglobin 30 PG (27-34); Mean Corpuscular Volume 94.5 FL (87-102); Mean Platelet Volume 10.2 FL (9.6-12.0); Monocytes # 0.8 10*3/uL (0.11-0.8); Neutrophils # 4.8 10*3/uL (1.4-7.4); Neutrophils % 69.9 % (38.7-73.9); Platelet Count 147 T/CUMM (130-400); Red Blood Count 3.08 MC/CUMM (3.8-5.5); Red Cell Distribution Width 15.1 % (9.3-17.3); White Blood Count 6.9 T/CUMM (4-12)
[2018-06-22 06:03] LABS: Calcium 8.4 MG/DL (8.5-10.1); Osmolality,Calculated 303.5 MOS/KG (273-304); Potassium 3.6 MMOL/L (3.5-5.1)
[2018-06-22] MEDS ORDERED: POLYETHYLENE GLYCOL POWDER 255 GM BOTTLE PO ONE (11:20)
[2018-06-22] MEDS: SEVELAMER CARBONATE 800 MG TABLET PO SCH ×3 (13:37→20:44)
[2018-06-22] MEDS: DIVALPROEX 500 MG TABLET PO SCH ×2 (13:38→20:50)
[2018-06-22] MEDS: CARVEDILOL 12.5 MG TABLET PO SCH ×2 (13:38→20:44)
[2018-06-22] MEDS: DOCUSATE SODIUM 100 MG CAPSULE PO SCH ×2 (13:38→20:44)
[2018-06-22] MEDS: CITALOPRAM 40 MG TABLET PO SCH (13:38)
[2018-06-22] MEDS: ISOSORBIDE MONONITRATE 30 MG TABLET PO SCH (13:38)
[2018-06-22] MEDS: MULTIVITAMIN (BEROCCA) TABLET PO SCH (13:38)
[2018-06-22] MEDS: HYDROmorphone 2 MG/1 ML VIAL IV PRN (19:29)
[2018-06-22] MEDS: ROSUVASTATIN 20 MG TABLET PO SCH (20:44)
[2018-06-23] MEDS: INSULIN REGULAR 100 UNIT/ML SUBCUT SCH ×4 (01:10→17:44)
[2018-06-23] MEDS: HYDROmorphone 2 MG/1 ML VIAL IV PRN (01:23)
[2018-06-23 02:55] LABS: Basophils % 0.2 % (0.0-0.8); Eosinophils # 0.1 10*3/uL (0.0-0.87); Eosinophils % 1.1 % (0.00-10.9); Hematocrit 27.1 VOL% (42.0-52.0); Hemoglobin 8.8 GM/DL (14.0-18.0); Immature Granulocytes % 1.4 %; Immature Granulocytes Absolute 0.09 #; Lymphocytes % 15.4 % (21.2-54.2); Mean Corpuscular HGB Conc 32.5 GM/DL (32-36); Mean Corpuscular Hemoglobin 30 PG (27-34); Mean Corpuscular Volume 93.4 FL (87-102); Monocytes # 0.7 10*3/uL (0.11-0.8); Monocytes % 10.9 % (1.7-12.7); Neutrophils # 4.6 10*3/uL (1.4-7.4); Platelet Count 147 T/CUMM (130-400); Red Cell Distribution Width 14.9 % (9.3-17.3); White Blood Count 6.5 T/CUMM (4-12)
[2018-06-23 03:26] LABS: Calcium 8.5 MG/DL (8.5-10.1); Osmolality,Calculated 302.7 MOS/KG (273-304); Potassium 3.4 MMOL/L (3.5-5.1)
[2018-06-23] MEDS ORDERED: ETOMIDATE 20 MG/10 ML VIAL IV ONE (13:33)
[2018-06-23] MEDS ORDERED: LIDOCAINE 2% 5 ML VIAL ONE (13:33)
[2018-06-23] MEDS ORDERED: PROPOFOL 200 MG/20 ML VIAL IV ONE (13:33)
[2018-06-23] MEDS ORDERED: POTASSIUM CHLORIDE 20 MEQ TABLET PO ONE (14:19)
[2018-06-23] MEDS: CITALOPRAM 40 MG TABLET PO SCH (15:26)
[2018-06-23] MEDS: DIVALPROEX 500 MG TABLET PO SCH ×2 (15:26→20:37)
[2018-06-23] MEDS: MULTIVITAMIN (BEROCCA) TABLET PO SCH (15:26)
[2018-06-23] MEDS: ISOSORBIDE MONONITRATE 30 MG TABLET PO SCH (15:26)
[2018-06-23] MEDS: DOCUSATE SODIUM 100 MG CAPSULE PO SCH ×2 (15:26→20:37)
[2018-06-23] MEDS: CARVEDILOL 12.5 MG TABLET PO SCH ×2 (15:26→20:37)
[2018-06-23] MEDS: SEVELAMER CARBONATE 800 MG TABLET PO SCH ×3 (15:28→20:36)
[2018-06-23] MEDS ORDERED: MAGNESIUM CITRATE 300 ML BOTTLE PO ONE (18:00)
[2018-06-23] MEDS: ROSUVASTATIN 20 MG TABLET PO SCH (20:36)
[2018-06-23] MEDS: traMADol 50 MG TABLET PO PRN (20:37)
[2018-06-24] MEDS: INSULIN REGULAR 100 UNIT/ML SUBCUT SCH ×4 (00:57→18:10)
[2018-06-24 05:53] LABS: Basophils % 0.3 % (0.0-0.8); Eosinophils # 0.1 10*3/uL (0.0-0.87); Eosinophils % 1.4 % (0.00-10.9); Hematocrit 26.5 VOL% (42.0-52.0); Hemoglobin 8.4 GM/DL (14.0-18.0); Immature Granulocytes % 1.1 %; Immature Granulocytes Absolute 0.08 #; Lymphocytes % 13.3 % (21.2-54.2); Mean Corpuscular HGB Conc 31.7 GM/DL (32-36); Mean Corpuscular Hemoglobin 30 PG (27-34); Mean Corpuscular Volume 94.3 FL (87-102); Mean Platelet Volume 10.1 FL (9.6-12.0); Monocytes # 0.8 10*3/uL (0.11-0.8); Neutrophils # 5.3 10*3/uL (1.4-7.4); Neutrophils % 72.9 % (38.7-73.9); Platelet Count 177 T/CUMM (130-400); Red Blood Count 2.81 MC/CUMM (3.8-5.5); Red Cell Distribution Width 14.6 % (9.3-17.3); White Blood Count 7.2 T/CUMM (4-12)
[2018-06-24 06:33] LABS: Calcium 8.6 MG/DL (8.5-10.1); Osmolality,Calculated 306.5 MOS/KG (273-304); Potassium 3.4 MMOL/L (3.5-5.1); Troponin I 0.294 NG/ML (0.00-0.045)
[2018-06-24] MEDS: ISOSORBIDE MONONITRATE 30 MG TABLET PO SCH (09:12)
[2018-06-24] MEDS: DOCUSATE SODIUM 100 MG CAPSULE PO SCH ×2 (09:15→20:43)
[2018-06-24] MEDS: CARVEDILOL 12.5 MG TABLET PO SCH ×2 (09:15→20:44)
[2018-06-24] MEDS: DIVALPROEX 500 MG TABLET PO SCH ×2 (09:15→20:43)
[2018-06-24] MEDS: SEVELAMER CARBONATE 800 MG TABLET PO SCH ×3 (09:15→17:04)
[2018-06-24] MEDS: CITALOPRAM 40 MG TABLET PO SCH (09:15)
[2018-06-24] MEDS: MULTIVITAMIN (BEROCCA) TABLET PO SCH (09:15)
[2018-06-24] MEDS ORDERED: POTASSIUM CHLORIDE 20 MEQ PACK PO ONE (12:52)
[2018-06-24] MEDS ORDERED: NAPROXEN 500 MG TABLET PO PRN (15:20)
[2018-06-24] MEDS ORDERED: BUPIVACAINE 0.5% 10 ML VIAL MISC INJ ONE (16:00)
[2018-06-24] MEDS ORDERED: BETAMETH SODIUM PHOS/ACETATE 30 MG/5 ML VIAL INTRAARTIC ONE (16:00)
[2018-06-24] MEDS ORDERED: BUPIVACAINE 0.5% 50 ML VIAL MISC INJ ONE (16:00)
[2018-06-24] MEDS: ROSUVASTATIN 20 MG TABLET PO SCH (20:43)
[2018-06-25] MEDS: INSULIN REGULAR 100 UNIT/ML SUBCUT SCH ×3 (00:09→11:58)
[2018-06-25] MEDS: CITALOPRAM 40 MG TABLET PO SCH (08:35)
[2018-06-25] MEDS: SEVELAMER CARBONATE 800 MG TABLET PO SCH ×2 (08:35→11:37)
[2018-06-25] MEDS: CARVEDILOL 12.5 MG TABLET PO SCH (08:36)
[2018-06-25] MEDS: DIVALPROEX 500 MG TABLET PO SCH (08:36)
[2018-06-25] MEDS: ISOSORBIDE MONONITRATE 30 MG TABLET PO SCH (08:36)
[2018-06-25] MEDS: DOCUSATE SODIUM 100 MG CAPSULE PO SCH (08:36)
[2018-06-25] MEDS: MULTIVITAMIN (BEROCCA) TABLET PO SCH (08:36)
[2018-06-25] MEDS ORDERED: POTASSIUM CHLORIDE 20 MEQ TABLET PO SCH (09:00)
[2018-06-25] MEDS ORDERED: ALLOPURINOL 100 MG TABLET PO SCH ×2 (09:00)
[2018-06-25 12:25] VITALS: BP 127/68
== END 2018-06-25 13:28 | disposition home or self-care (01) | DRG 280 ==
LOC: N.ED 20:59 → SUATTDRO 22:07 → N.EDINP 22:07 → N.CC 23:42 → N.5E 06-19 12:04
PROVIDERS: ADMIT Internal Medicine Cardiovascular Disease; ATTEND Internal Medicine

== ENCOUNTER 2018-07-08 20:53 | Observation (INO) ==
[2018-07-08] MEDS ORDERED: NITROGLYCERIN 2% OINT 1 INCH/GM PACK TOP STA (21:35)
[2018-07-08] MEDS ORDERED: HYDROmorphone 2 MG/1 ML VIAL IV STA (21:35)
[2018-07-08] MEDS ORDERED: ONDANSETRON 4 MG/2 ML VIAL IV STA (21:35)
[2018-07-08] MEDS ORDERED: ASPIRIN 325 MG TABLET PO STA (21:35)
[2018-07-08 21:52] LABS: Basophils % 0.4 % (0.0-0.8); Eosinophils # 0.2 10*3/uL (0.0-0.87); Hematocrit 23.2 VOL% (42.0-52.0); Hemoglobin 7.3 GM/DL (14.0-18.0); Immature Granulocytes % 1.5 %; Immature Granulocytes Absolute 0.11 #; Lymphocytes % 12.9 % (21.2-54.2); Mean Corpuscular HGB Conc 31.5 GM/DL (32-36); Mean Corpuscular Hemoglobin 31 PG (27-34); Mean Corpuscular Volume 99.1 FL (87-102); Mean Platelet Volume 9.6 FL (9.6-12.0); Monocytes # 0.3 10*3/uL (0.11-0.8); Monocytes % 3.9 % (1.7-12.7); Neutrophils # 5.8 10*3/uL (1.4-7.4); Neutrophils % 78.3 % (38.7-73.9); Platelet Count 190 T/CUMM (130-400); Red Blood Count 2.34 MC/CUMM (3.8-5.5); White Blood Count 7.4 T/CUMM (4-12)
[2018-07-08 22:06] LABS: PT Patient Result 10.7 SECS
[2018-07-08 22:10] LABS: Albumin 2.6 G/DL (3.4-5.0); Bilirubin,Total 0.8 MG/DL (0.2-1.0); Calcium 7.4 MG/DL (8.5-10.1); Osmolality,Calculated 308.1 MOS/KG (273-304); Potassium 3.8 MMOL/L (3.5-5.1); Total Protein 6.6 G/DL (6.4-8.3)
[2018-07-08] MEDS ORDERED: MAGNESIUM SULF RIDER 2 GM in PREMIX 1 EACH IV STA (22:27)
[2018-07-08] MEDS ORDERED: diphenhydrAMINE CAP 25 MG CAPSULE PO PRN (23:06)
[2018-07-08] MEDS ORDERED: ACETAMINOPHEN 325 MG TABLET PO PRN (23:06)
[2018-07-08] MEDS ORDERED: MAGNESIUM SULF RIDER 4 GM in PREMIX 1 EACH IV PRN (23:06)
[2018-07-08] MEDS ORDERED: MAGNESIUM SULF RIDER 2 GM in PREMIX 1 EACH IV PRN (23:06)
[2018-07-08] MEDS ORDERED: ZALEPLON 5 MG CAPSULE PO PRN (23:06)
[2018-07-08] MEDS ORDERED: HYDROmorphone 2 MG/1 ML VIAL IV PRN (23:06)
[2018-07-08] MEDS ORDERED: ONDANSETRON 4 MG/2 ML VIAL IV PRN (23:06)
[2018-07-08] MEDS ORDERED: guaiFENesin/DM ER 600-30 MG TABLET PO PRN (23:06)
[2018-07-08] MEDS ORDERED: NITROGLYCERIN SL 0.4 MG TABLET SL PRN (23:06)
[2018-07-08] MEDS ORDERED: POTASSIUM CHLORIDE 20 MEQ TABLET PO PRN (23:06)
[2018-07-08] MEDS ORDERED: BISACODYL 5 MG TABLET PO PRN (23:06)
[2018-07-08] MEDS ORDERED: NICOTINE 21 MG/24 HR PATCH TRANSDERM PRN (23:06)
[2018-07-09] MEDS ORDERED: SODIUM CHLORIDE 0.9% 1,000 ML IV PRN ×2 (00:53→11:35)
[2018-07-09] MEDS ORDERED: ROSUVASTATIN 20 MG TABLET PO SCH (00:53)
[2018-07-09] MEDS ORDERED: LOPERAMIDE 2 MG CAPSULE PO PRN (00:53)
[2018-07-09] MEDS ORDERED: MELATONIN 3 MG TABLET PO SCH (00:53)
[2018-07-09 01:06] LABS: Risk Ratio 4.53; Thyroid Stimulating Hormone 4.17 uIU/ml (0.358-3.74); VLDL CHOLESTEROL 73.8 MG/DL
[2018-07-09] MEDS: LOSARTAN 25 MG TABLET PO SCH ×2 (02:14→09:09)
[2018-07-09] MEDS: CARVEDILOL 6.25 MG TABLET PO SCH ×2 (02:14→09:08)
[2018-07-09] MEDS ORDERED: PANTOPRAZOLE 40 MG TABLET PO SCH (09:00)
[2018-07-09] MEDS ORDERED: ALLOPURINOL 100 MG TABLET PO SCH (09:00)
[2018-07-09] MEDS ORDERED: LORATADINE 10 MG TABLET PO SCH (09:00)
[2018-07-09] MEDS ORDERED: ERGOCALCIFEROL 50,000 UNIT CAPSULE PO SCH (09:00)
[2018-07-09] MEDS ORDERED: CITALOPRAM 40 MG TABLET PO SCH (09:00)
[2018-07-09] MEDS ORDERED: ASPIRIN 325 MG TABLET PO SCH (09:00)
[2018-07-09] MEDS ORDERED: ISOSORBIDE MONONITRATE 30 MG TABLET PO SCH (09:00)
[2018-07-09] MEDS: SEVELAMER CARBONATE 800 MG TABLET PO SCH ×2 (09:08→15:46)
[2018-07-09 10:25] LABS: Hematocrit 24.6 VOL% (42.0-52.0); Hemoglobin 7.8 GM/DL (14.0-18.0)
[2018-07-09 20:26] VITALS: BP 122/63
[2018-07-10] MEDS ORDERED: ISOSORBIDE MONONITRATE 30 MG TABLET PO SCH (09:00)
== END 2018-07-09 20:19 | disposition home or self-care (01) ==
LOC: N.EDINP 20:53 → N.ED 20:53 → N.TELES 07-09 01:02
PROVIDERS: ADMIT Internal Medicine; ATTEND Internal Medicine

== ENCOUNTER 2018-07-17 17:58 | Inpatient (IN) ==
[2018-07-17] MEDS ORDERED: NITROGLYCERIN 2% OINT 1 INCH/GM PACK TOP STA (19:28)
[2018-07-17 19:32] LABS: Basophils % 0.2 % (0.0-0.8); Eosinophils # 0.2 10*3/uL (0.0-0.87); Eosinophils % 2.4 % (0.00-10.9); Immature Granulocytes % 2.3 %; Immature Granulocytes Absolute 0.14 #; Lymphocytes # 0.7 10*3/uL (1.4-4.0); Mean Corpuscular Hemoglobin 31 PG (27-34); Mean Corpuscular Volume 98.3 FL (87-102); Monocytes # 0.4 10*3/uL (0.11-0.8); Neutrophils # 4.8 10*3/uL (1.4-7.4); Neutrophils % 78.1 % (38.7-73.9); Platelet Count 120 T/CUMM (130-400); Red Blood Count 1.77 MC/CUMM (3.8-5.5); Red Cell Distribution Width 17.2 % (9.3-17.3); White Blood Count 6.2 T/CUMM (4-12)
[2018-07-17 19:38] LABS: Hemoglobin 5.4 GM/DL (14.0-18.0)
[2018-07-17 19:39] LABS: Hematocrit 17.4 VOL% (42.0-52.0)
[2018-07-17 19:46] LABS: Albumin 2.5 G/DL (3.4-5.0); Bilirubin,Total 0.5 MG/DL (0.2-1.0); Calcium 7.8 MG/DL (8.5-10.1); Osmolality,Calculated 310.3 MOS/KG (273-304); Potassium 4.1 MMOL/L (3.5-5.1); Total Protein 5.8 G/DL (6.4-8.3)
[2018-07-17] MEDS ORDERED: SODIUM CHLORIDE 0.9% 1,000 ML IV PRN (20:48)
[2018-07-17] MEDS ORDERED: ONDANSETRON 4 MG/2 ML VIAL IV PRN (21:55)
[2018-07-17] MEDS ORDERED: ACETAMINOPHEN 325 MG TABLET PO PRN (21:55)
[2018-07-17] MEDS ORDERED: GLUCAGON 1 MG VIAL IM PRN (22:03)
[2018-07-17] MEDS ORDERED: DEXTROSE 50% 25 GM/50 ML SYRINGE IV PRN (22:03)
[2018-07-17 22:23] LABS: Risk Ratio 4.2; VLDL CHOLESTEROL 61.2 MG/DL
[2018-07-18] MEDS: INSULIN REGULAR 100 UNIT/ML SUBCUT SCH ×5 (00:11→21:05)
[2018-07-18] MEDS: MELATONIN 3 MG TABLET PO SCH ×2 (00:20→20:59)
[2018-07-18] MEDS: NITROGLYCERIN 2% OINT 1 INCH/GM PACK TOP SCH ×4 (02:11→17:49)
[2018-07-18 07:48] LABS: Basophils % 0.4 % (0.0-0.8); Eosinophils # 0.2 10*3/uL (0.0-0.87); Eosinophils % 2.7 % (0.00-10.9); Hematocrit 22.7 VOL% (42.0-52.0); Hemoglobin 7.1 GM/DL (14.0-18.0); Immature Granulocytes % 1.8 %; Lymphocytes # 0.8 10*3/uL (1.4-4.0); Lymphocytes % 14.9 % (21.2-54.2); Mean Corpuscular HGB Conc 31.3 GM/DL (32-36); Mean Corpuscular Hemoglobin 30 PG (27-34); Mean Platelet Volume 10.2 FL (9.6-12.0); Monocytes # 0.4 10*3/uL (0.11-0.8); Monocytes % 7.6 % (1.7-12.7); Neutrophils # 4.1 10*3/uL (1.4-7.4); Neutrophils % 72.6 % (38.7-73.9); Platelet Count 104 T/CUMM (130-400); Red Blood Count 2.39 MC/CUMM (3.8-5.5); Red Cell Distribution Width 16.5 % (9.3-17.3); White Blood Count 5.6 T/CUMM (4-12)
[2018-07-18 08:09] LABS: Osmolality,Calculated 305.4 MOS/KG (273-304); Potassium 4.2 MMOL/L (3.5-5.1)
[2018-07-18] MEDS ORDERED: PANTOPRAZOLE 40 MG TABLET PO SCH (09:00)
[2018-07-18] MEDS: MULTIVITAMIN (BEROCCA) TABLET PO SCH (09:23)
[2018-07-18] MEDS: glipiZIDE 10 MG TABLET PO SCH (09:23)
[2018-07-18] MEDS: ASPIRIN EC 325 MG TABLET PO SCH (09:23)
[2018-07-18] MEDS: CITALOPRAM 40 MG TABLET PO SCH (09:23)
[2018-07-18] MEDS: SEVELAMER CARBONATE 800 MG TABLET PO SCH ×3 (09:23→17:07)
[2018-07-18] MEDS: CARVEDILOL 12.5 MG TABLET PO SCH ×2 (09:24→17:06)
[2018-07-18] MEDS: ALLOPURINOL 100 MG TABLET PO SCH (09:24)
[2018-07-18] MEDS: LORATADINE 10 MG TABLET PO SCH (09:24)
[2018-07-18] MEDS: ISOSORBIDE MONONITRATE 30 MG TABLET PO SCH (09:24)
[2018-07-18] MEDS: LOSARTAN 25 MG TABLET PO SCH ×2 (09:27→20:59)
[2018-07-18 10:50] LABS: % Iron Saturation 45.4 % (18-50); Ferritin 1314.9 ng/ml (26-388)
[2018-07-18 11:09] LABS: Folate 9.3 NG/ML (5.4-24.0)
[2018-07-18] MEDS ORDERED: SODIUM CHLORIDE 0.9% 1,000 ML IV PRN (14:42)
[2018-07-18] MEDS: PANTOPRAZOLE 40 MG VIAL IV SCH (20:56)
[2018-07-18] MEDS: ROSUVASTATIN 20 MG TABLET PO SCH (20:59)
[2018-07-19] MEDS: NITROGLYCERIN 2% OINT 1 INCH/GM PACK TOP SCH ×4 (00:02→17:13)
[2018-07-19 04:27] LABS: Basophils % 0.4 % (0.0-0.8); Eosinophils # 0.1 10*3/uL (0.0-0.87); Eosinophils % 2.2 % (0.00-10.9); Hematocrit 24.2 VOL% (42.0-52.0); Hemoglobin 7.8 GM/DL (14.0-18.0); Immature Granulocytes % 1.9 %; Lymphocytes # 0.9 10*3/uL (1.4-4.0); Lymphocytes % 17.2 % (21.2-54.2); Mean Corpuscular HGB Conc 32.2 GM/DL (32-36); Mean Corpuscular Hemoglobin 30 PG (27-34); Mean Platelet Volume 10.4 FL (9.6-12.0); Monocytes # 0.5 10*3/uL (0.11-0.8); Monocytes % 8.9 % (1.7-12.7); NRBC # 0.02 10*3/uL; Neutrophils # 3.8 10*3/uL (1.4-7.4); Neutrophils % 69.4 % (38.7-73.9); Platelet Count 118 T/CUMM (130-400); Red Blood Count 2.63 MC/CUMM (3.8-5.5); Red Cell Distribution Width 17.2 % (9.3-17.3); White Blood Count 5.4 T/CUMM (4-12)
[2018-07-19 05:16] LABS: Calcium 8.1 MG/DL (8.5-10.1); Osmolality,Calculated 310.1 MOS/KG (273-304); Potassium 4.1 MMOL/L (3.5-5.1)
[2018-07-19] MEDS: INSULIN REGULAR 100 UNIT/ML SUBCUT SCH ×4 (07:44→21:27)
[2018-07-19] MEDS ORDERED: MAGNESIUM SULF RIDER 4 GM in PREMIX 1 EACH IV PRN (07:52)
[2018-07-19] MEDS ORDERED: MAGNESIUM SULF RIDER 2 GM in PREMIX 1 EACH IV PRN (07:52)
[2018-07-19] MEDS: PANTOPRAZOLE 40 MG VIAL IV SCH ×2 (08:56→21:29)
[2018-07-19] MEDS: ASPIRIN EC 325 MG TABLET PO SCH (08:57)
[2018-07-19] MEDS: CITALOPRAM 40 MG TABLET PO SCH (08:57)
[2018-07-19] MEDS: ALLOPURINOL 100 MG TABLET PO SCH (08:57)
[2018-07-19] MEDS: ISOSORBIDE MONONITRATE 30 MG TABLET PO SCH (08:57)
[2018-07-19] MEDS: LOSARTAN 25 MG TABLET PO SCH ×2 (08:57→21:27)
[2018-07-19] MEDS: MULTIVITAMIN (BEROCCA) TABLET PO SCH (08:57)
[2018-07-19] MEDS: SEVELAMER CARBONATE 800 MG TABLET PO SCH ×3 (08:57→17:13)
[2018-07-19] MEDS: glipiZIDE 10 MG TABLET PO SCH (08:57)
[2018-07-19] MEDS: CARVEDILOL 12.5 MG TABLET PO SCH ×2 (08:57→17:13)
[2018-07-19] MEDS: LORATADINE 10 MG TABLET PO SCH (08:57)
[2018-07-19] MEDS: ROSUVASTATIN 20 MG TABLET PO SCH (21:26)
[2018-07-19] MEDS: MELATONIN 3 MG TABLET PO SCH (21:27)
[2018-07-20] MEDS: NITROGLYCERIN 2% OINT 1 INCH/GM PACK TOP SCH ×3 (01:06→12:19)
[2018-07-20] MEDS: INSULIN REGULAR 100 UNIT/ML SUBCUT SCH ×4 (08:26→21:02)
[2018-07-20] MEDS ORDERED: GLUCAGON 1 MG VIAL ONE (08:55)
[2018-07-20] MEDS ORDERED: ERGOCALCIFEROL 50,000 UNIT CAPSULE PO SCH (09:00)
[2018-07-20] MEDS ORDERED: PROPOFOL 200 MG/20 ML VIAL IV ONE (09:00)
[2018-07-20] MEDS ORDERED: ETOMIDATE 20 MG/10 ML VIAL IV ONE (09:00)
[2018-07-20] MEDS ORDERED: LIDOCAINE 2% 5 ML VIAL ONE (09:00)
[2018-07-20] MEDS: CITALOPRAM 40 MG TABLET PO SCH (10:29)
[2018-07-20] MEDS: LOSARTAN 25 MG TABLET PO SCH ×2 (10:29→20:58)
[2018-07-20] MEDS: SEVELAMER CARBONATE 800 MG TABLET PO SCH ×3 (10:29→16:51)
[2018-07-20] MEDS: CARVEDILOL 12.5 MG TABLET PO SCH ×2 (10:30→16:51)
[2018-07-20] MEDS: glipiZIDE 10 MG TABLET PO SCH (10:30)
[2018-07-20] MEDS: ASPIRIN EC 325 MG TABLET PO SCH (10:30)
[2018-07-20] MEDS: ISOSORBIDE MONONITRATE 30 MG TABLET PO SCH (10:30)
[2018-07-20] MEDS: ALLOPURINOL 100 MG TABLET PO SCH (10:30)
[2018-07-20] MEDS: LORATADINE 10 MG TABLET PO SCH (10:30)
[2018-07-20] MEDS: PANTOPRAZOLE 40 MG VIAL IV SCH ×2 (10:48→20:58)
[2018-07-20] MEDS: MULTIVITAMIN (BEROCCA) TABLET PO SCH (10:48)
[2018-07-20 10:54] LABS: Basophils % 0.1 % (0.0-0.8); Eosinophils # 0.2 10*3/uL (0.0-0.87); Eosinophils % 2.3 % (0.00-10.9); Hematocrit 25.1 VOL% (42.0-52.0); Hemoglobin 7.7 GM/DL (14.0-18.0); Immature Granulocytes % 1.3 %; Immature Granulocytes Absolute 0.09 #; Lymphocytes # 0.9 10*3/uL (1.4-4.0); Lymphocytes % 12.7 % (21.2-54.2); Mean Corpuscular HGB Conc 30.7 GM/DL (32-36); Mean Corpuscular Hemoglobin 30 PG (27-34); Mean Corpuscular Volume 97.7 FL (87-102); Mean Platelet Volume 10.2 FL (9.6-12.0); Monocytes # 0.5 10*3/uL (0.11-0.8); Monocytes % 6.4 % (1.7-12.7); NRBC # 0.02 10*3/uL; Neutrophils # 5.5 10*3/uL (1.4-7.4); Neutrophils % 77.2 % (38.7-73.9); Platelet Count 139 T/CUMM (130-400); Red Blood Count 2.57 MC/CUMM (3.8-5.5); Red Cell Distribution Width 17.5 % (9.3-17.3); White Blood Count 7.1 T/CUMM (4-12)
[2018-07-20 11:06] LABS: PT Patient Result 10.7 SECS; Partial Thromboplastin Time 23.4 SECS (0-40)
[2018-07-20 11:17] LABS: Calcium 8.4 MG/DL (8.5-10.1); Osmolality,Calculated 305.3 MOS/KG (273-304); Potassium 4.4 MMOL/L (3.5-5.1)
[2018-07-20 17:43] LABS: Hematocrit 23.3 VOL% (42.0-52.0); Hemoglobin 7.4 GM/DL (14.0-18.0)
[2018-07-20] MEDS: ROSUVASTATIN 20 MG TABLET PO SCH (20:58)
[2018-07-20] MEDS: MELATONIN 3 MG TABLET PO SCH (20:58)
[2018-07-21 02:39] LABS: Hematocrit 22.7 VOL% (42.0-52.0); Hemoglobin 7.2 GM/DL (14.0-18.0)
[2018-07-21 05:33] LABS: Basophils % 0.2 % (0.0-0.8); Eosinophils # 0.2 10*3/uL (0.0-0.87); Hemoglobin 7.1 GM/DL (14.0-18.0); Immature Granulocytes % 1.6 %; Immature Granulocytes Absolute 0.08 #; Lymphocytes # 0.9 10*3/uL (1.4-4.0); Lymphocytes % 18.4 % (21.2-54.2); Mean Corpuscular HGB Conc 30.9 GM/DL (32-36); Mean Corpuscular Hemoglobin 30 PG (27-34); Mean Corpuscular Volume 95.8 FL (87-102); Mean Platelet Volume 10.4 FL (9.6-12.0); Monocytes # 0.4 10*3/uL (0.11-0.8); Monocytes % 8.5 % (1.7-12.7); Neutrophils # 3.5 10*3/uL (1.4-7.4); Neutrophils % 68.3 % (38.7-73.9); Platelet Count 134 T/CUMM (130-400); Red Cell Distribution Width 17.2 % (9.3-17.3); White Blood Count 5.1 T/CUMM (4-12)
[2018-07-21 05:42] LABS: Calcium 8.3 MG/DL (8.5-10.1); Osmolality,Calculated 301.4 MOS/KG (273-304); Potassium 3.8 MMOL/L (3.5-5.1)
[2018-07-21] MEDS: INSULIN REGULAR 100 UNIT/ML SUBCUT SCH ×4 (08:28→21:32)
[2018-07-21] MEDS: ASPIRIN EC 325 MG TABLET PO SCH (09:06)
[2018-07-21] MEDS: ISOSORBIDE MONONITRATE 30 MG TABLET PO SCH (09:06)
[2018-07-21] MEDS: LORATADINE 10 MG TABLET PO SCH (09:06)
[2018-07-21] MEDS: SEVELAMER CARBONATE 800 MG TABLET PO SCH ×3 (09:06→17:53)
[2018-07-21] MEDS: CITALOPRAM 40 MG TABLET PO SCH (09:06)
[2018-07-21] MEDS: MULTIVITAMIN (BEROCCA) TABLET PO SCH (09:06)
[2018-07-21] MEDS: LOSARTAN 25 MG TABLET PO SCH ×2 (09:06→21:28)
[2018-07-21] MEDS: CARVEDILOL 12.5 MG TABLET PO SCH ×2 (09:07→17:53)
[2018-07-21] MEDS: PANTOPRAZOLE 40 MG VIAL IV SCH ×2 (09:07→21:24)
[2018-07-21] MEDS: ALLOPURINOL 100 MG TABLET PO SCH (09:07)
[2018-07-21] MEDS: glipiZIDE 10 MG TABLET PO SCH (09:07)
[2018-07-21 09:22] LABS: Hematocrit 24.7 VOL% (42.0-52.0); Hemoglobin 7.7 GM/DL (14.0-18.0)
[2018-07-21] MEDS ORDERED: SODIUM CHLORIDE 0.9% 1,000 ML IV PRN (12:10)
[2018-07-21] MEDS: ROSUVASTATIN 20 MG TABLET PO SCH (21:28)
[2018-07-21] MEDS: MELATONIN 3 MG TABLET PO SCH (21:28)
[2018-07-22 08:23] VITALS: BP 143/77
[2018-07-22 09:24] LABS: Basophils % 0.6 % (0.0-0.8); Eosinophils # 0.2 10*3/uL (0.0-0.87); Eosinophils % 2.8 % (0.00-10.9); Hematocrit 29.2 VOL% (42.0-52.0); Hemoglobin 9.5 GM/DL (14.0-18.0); Immature Granulocytes % 2.4 %; Immature Granulocytes Absolute 0.13 #; Lymphocytes # 0.9 10*3/uL (1.4-4.0); Lymphocytes % 15.9 % (21.2-54.2); Mean Corpuscular HGB Conc 32.5 GM/DL (32-36); Mean Corpuscular Hemoglobin 31 PG (27-34); Mean Corpuscular Volume 93.9 FL (87-102); Mean Platelet Volume 10.1 FL (9.6-12.0); Monocytes # 0.4 10*3/uL (0.11-0.8); Monocytes % 7.6 % (1.7-12.7); NRBC # 0.03 10*3/uL; Neutrophils # 3.8 10*3/uL (1.4-7.4); Neutrophils % 70.7 % (38.7-73.9); Platelet Count 143 T/CUMM (130-400); Red Blood Count 3.11 MC/CUMM (3.8-5.5); Red Cell Distribution Width 16.3 % (9.3-17.3); White Blood Count 5.4 T/CUMM (4-12)
[2018-07-22] MEDS: LOSARTAN 25 MG TABLET PO SCH (09:29)
[2018-07-22] MEDS: CITALOPRAM 40 MG TABLET PO SCH (09:29)
[2018-07-22] MEDS: SEVELAMER CARBONATE 800 MG TABLET PO SCH ×2 (09:29→12:49)
[2018-07-22] MEDS: ISOSORBIDE MONONITRATE 30 MG TABLET PO SCH (09:29)
[2018-07-22] MEDS: ALLOPURINOL 100 MG TABLET PO SCH (09:29)
[2018-07-22] MEDS: glipiZIDE 10 MG TABLET PO SCH (09:29)
[2018-07-22] MEDS: ASPIRIN EC 325 MG TABLET PO SCH (09:30)
[2018-07-22] MEDS: INSULIN REGULAR 100 UNIT/ML SUBCUT SCH (09:30)
[2018-07-22] MEDS: CARVEDILOL 12.5 MG TABLET PO SCH (09:30)
[2018-07-22] MEDS: MULTIVITAMIN (BEROCCA) TABLET PO SCH (09:30)
[2018-07-22] MEDS: PANTOPRAZOLE 40 MG VIAL IV SCH (09:30)
[2018-07-22] MEDS: LORATADINE 10 MG TABLET PO SCH (09:30)
== END 2018-07-22 12:48 | disposition home or self-care (01) | DRG 377 ==
LOC: N.ED 17:58 → N.EDINP 21:55 → SUATTDRO 21:55 → N.TELES 22:29
PROVIDERS: ADMIT Emergency Medicine; ATTEND Internal Medicine

== ENCOUNTER 2018-10-08 19:44 | Observation (INO) ==
[2018-10-08] MEDS ORDERED: KETOROLAC 30 MG/1 ML VIAL IV STA (20:13)
[2018-10-08] MEDS ORDERED: NITROGLYCERIN 2% OINT 1 INCH/GM PACK TOP STA (20:13)
[2018-10-08] MEDS ORDERED: ASPIRIN 325 MG TABLET PO STA (20:13)
[2018-10-08] MEDS ORDERED: ONDANSETRON 4 MG/2 ML VIAL IV STA (20:13)
[2018-10-08 20:44] LABS: Basophils % 0.3 % (0.0-0.8); Eosinophils # 0.1 10*3/uL (0.0-0.87); Eosinophils % 1.7 % (0.00-10.9); Hematocrit 27.9 VOL% (42.0-52.0); Hemoglobin 8.7 GM/DL (14.0-18.0); Immature Granulocytes % 0.9 %; Immature Granulocytes Absolute 0.06 #; Lymphocytes # 0.7 10*3/uL (1.4-4.0); Lymphocytes % 10.3 % (21.2-54.2); Mean Corpuscular HGB Conc 31.2 GM/DL (32-36); Mean Corpuscular Volume 101.5 FL (87-102); Mean Platelet Volume 10.9 FL (9.6-12.0); Monocytes % 8.7 % (1.7-12.7); Neutrophils % 78.1 % (38.7-73.9); Platelet Count 118 T/CUMM (130-400); Red Blood Count 2.75 MC/CUMM (3.8-5.5); Red Cell Distribution Width 16.4 % (9.3-17.3); White Blood Count 6.4 T/CUMM (4-12)
[2018-10-08 20:53] LABS: Alanine Aminotransferase 21 U/L (16-61); Albumin 2.8 G/DL (3.4-5.0); Alkaline Phosphatase 118 U/L (45-117); Aspartate Amino Transferase 15 U/L (0-37); Bilirubin,Total < 0.39 MG/DL (0.2-1.0); Blood Urea Nitrogen 71 MG/DL (7-18); Glucose 185 MG/DL (74-106); Osmolality,Calculated 308.1 MOS/KG (273-304); Total Protein 6.7 G/DL (6.4-8.3); Troponin I 0.035 NG/ML (0.00-0.045)
[2018-10-08 20:57] LABS: INR 0.9; PT Patient Result 10.3 SECS; Partial Thromboplastin Time 26.7 SECS (0-40)
[2018-10-08 21:52] LABS: Apearance,Urine CLEAR (Clear); Bilirubin,Urine Negative (Negative); Blood, Urine Negative (Negative); Glucose,Urine (UA) 50 mg/dL (Negative); Ketones,Urine Negative (Negative); Nitrite,Urine Negative (Negative); Protein,Urine >=500 MG/DL; RBC,Urine 1 /HPF (0-4); Squamous Epithelial Cell,Urine Occasional /HPF (0-10); Urine Color Yellow (Yellow); Urine Specific Gravity 1.014 (1.001-1.035); Urine Urobilinogen < 2.0 EU/DL (0.2-1.0); WBC,Urine 1 /HPF (0-6)
[2018-10-09] MEDS ORDERED: ONDANSETRON 4 MG/2 ML VIAL IV PRN (01:13)
[2018-10-09] MEDS ORDERED: INSULIN REGULAR 100 UNIT/ML SUBCUT ONE (01:13)
[2018-10-09] MEDS ORDERED: ENOXAPARIN 30 MG/0.3 ML SYRINGE SUBCUT SCH (01:30)
[2018-10-09] MEDS ORDERED: NITROGLYCERIN 2% OINT 1 INCH/GM PACK TOP SCH (06:00)
[2018-10-09 08:18] VITALS: BP 105/65
== END 2018-10-09 11:32 | disposition home or self-care (01) ==
LOC: N.ED 19:44 → N.EDINP 19:44 → N.TELEN 10-09 02:21
PROVIDERS: ADMIT Hospitalist; ATTEND Hospitalist